=== PATIENT | female | born 1955 | race Caucasian/White ===

== ENCOUNTER → 2017-07-29 | Outpatient (CLI) | payer OTHER | END | disposition home or self-care (01) | LOC: C.PAPS 11:28 | PROVIDERS: ATTEND Obstetrics & Gynecology | DX: Z12.4 Encounter for screening for malignant neoplasm of cervix (principal); Z78.0 Asymptomatic menopausal state ==

== ENCOUNTER → 2017-09-25 | Outpatient (CLI) | payer OTHER ==
--- NOTE | 2017-09-28 08:00 | MAMMOGRAPHY REPORT ---
BILATERAL DIGITAL SCREENING MAMMOGRAM TOMOSYNTHESIS WITH CAD: 09/25/2017 TECHNIQUE: Breast tomosynthesis in addition to standard 2D mammography was performed. Current study was also evaluated with a Computer Aided Detection (CAD) system. COMPARISON: Comparison is made to exams dated: 09/22/2016 mammogram - [facility], 09/21/2015 mammogram, 09/19/2014 mammogram, and 10/15/2013 mammogram - [facility] r. BREAST COMPOSITION: The tissue of both breasts is almost entirely fatty. FINDINGS: No suspicious masses, calcifications, or areas of architectural distortion are noted in ei ther breast. There has been no significant interval change compared to prior exams. The previously s een mass within the right upper outer quadrant is decreased in size compared to the prior exams and i s therefore considered benign. IMPRESSION: ACR BI-RADS CATEGORY 2: BENIGN There is no mammographic evidence of malignancy. A 1 year screening mammogram is recommended. The pa tient will receive written notification of the results. Approximately 10% of breast cancers are not detected with mammography. A negative mammographic report should not delay biopsy if a clinically suggestive mass is present. Claudia Moe M.D. /:09/25/2017 12:48:04 Chip Machine Operator: Anusha HOWELL(R)(M), [facility] letter sent: Normal 1/2 BI-RADS Code: ACR BI-RADS Category 2: Benign
== END | disposition home or self-care (01) ==
LOC: C.MAMM 10:50
PROVIDERS: ATTEND Obstetrics & Gynecology
DX: Z12.31 Encounter for screening mammogram for malignant neoplasm of breast (principal)

== ENCOUNTER 2021-02-08 10:57 | Inpatient (IN) ==
--- NOTE | 2021-02-08 11:59 | Emergency Department Note ---
Impression & Plan Anemia, SOB (shortness of breath), Ovarian cancer, Nausea ED Provider Note INFORMANT: Patient ED PROVIDER(S): Jose Rizzo MD CHIEF COMPLAINT: Weakness PLAN: Disposition: Admitted Condition: Good Outpatient prescription management: none Referral: None MEDICAL DECISION MAKING: Patient presented because of weakness and noting anemia on outpatient labs. Her CBC revealed a hemoglobin of 7.2 as an outpatient. She had her port accessed. Her labs revealed a mild hypokalemia on chemistry panel. Her CBC showed a significant anemia. Her numbers were significantly lower than yesterday and therefore a repeat hemoglobin was performed. I suspect the first 1 had to do with her blood draw from the port. The patient's repeat hemoglobin was still low. She will require transfusion. I did discuss this with her and she was very much in agreement. I gave my usual and customary discussion regarding this issue. Patient was consented and blood transfusion was initiated in the ER. Patient also was given Ativan, saline, and Zofran. She did feel better with this. The patient will require further management in the hospital. Consultation was made with Dr. Saleem. The patient was evaluated in the ER and admitted for further management. Triage Nursing notes reviewed and agree them. Vital Signs: reviewed and remarkable for no significant abnormalities Differential diagnosis: Symptomatic anemia, Infection, dehydration, metabolic abnormality, hypo/hyperglycemia, electrolyte disturbance, anemia, hypoxia, cardiac sources, i ntracerebral event, toxicologic, neurologic, as well as other pathologies. Diagnostics interpreted by me: ECG: Rate:89 Rhythm:Normal sinus [place]:Normal QRS:Low voltage ST segements:No elevation or depression Other:No PACs or PVCs. LAE. Cardiac Monitoring: Cardiac monitoring ordered by me: The patient was placed on continuous cardiac monitoring and observed. It revealed a normal sinus rhythm at 79 beats per minute without ectopy or evidence of dysrhythmia. Imaging studies: Deferred HPI: The patient is a 65 year old female who presents to the Emergency Room with complaints of anemia. This started two months ago and is worsening. The patient also notes the following associated symptoms, fatigue and SOB. Chronic abd pain from ovarian cancer. The patient has found no relieving factors. Current pain is rated as 4/10. She uses ativan to help her relax.Outpatient labs revealed significant anemia. Hgb 7. Pt denies LOC, headache, fevers, chills, diaphoresis, visual changes, neck pain, chest pain, breathing difficulties, nausea, vomiting, back pain, melena, hematochezia, urinary symptoms, numbness, lymphadenopathy, rash, or other complaints. ROS: See above HPI for pertinent positives & negatives. A total of 10 systems reviewed and were otherwise negative. PAST MEDICAL HISTORY:See Below , ovarian cancer PAST SURGICAL HISTORY:See Below, mediport FAMILY HISTORY:See Below SOCIAL HISTORY:See Below, HOME MEDICATIONS:See Below ALLERGIES:See Below VITALS:See Below PHYSICAL EXAMINATION: GENERAL: Awake, alert, weak-appearing, in no distress HENT: Normocephalic, atraumatic. Oropharynx unremarkable. EYES: Pale conjunctiva. Sclera non-icteric. NECK: Inspection normal. Non-tender. Supple. No nuchal rigidity. FROM. No masses. RESPIRATORY: Clear to auscultation. No wheezes. No rales. Normal respiratory effort. CARDIAC: Normal rate. Normal rhythm. No murmurs. No rubs. Extremities warm and well perfused. Pulses equal. No JVD. GI: Soft, non-distended. No tenderness to palpation. No rebound or guarding. No masses. RECTAL: Deferred. MUSCULOSKELETAL: Atraumatic. Chest examination reveals no tenderness. The back is symmetrical on inspection without obvious abnormality. There is no CVA tenderness to palpation. No joint edema. LOWER EXTREMITIES: Calves are equal size bilaterally and non-tender. No edema. No discoloration. NEURO: Normal sensorium. No sensory or motor deficits noted. SKIN: No rash or jaundice noted. CRITICAL CARE: I have personally spent greater than 35 minutes of critical care time in the direct management of this patient. This includes bedside care, interpretation of diagnostic studies, and testing, discussion with consultants, patient, and family members, and other required patient management activities. These minutes are in excess of all separately billable procedures. Jose Rizzo MD Past Med/Surg History Medical History Back pain GERD (gastroesophageal reflux disease) Hypertension Hypothyroidism Ovarian cancer Surgical History H/O oral surgery S/P appendectomy S/P bilateral salpingo-oophorectomy S/P lymph node biopsy S/P tonsillectomy S/P total abdominal hysterectomy Status post surgery OMENTECTOMY Status post surgery PELVIC LYMPHADENECTOMY Family History Father Myocardial infarction Sister Bipolar disorder Grandmother (Maternal) Stroke Grandmother (Paternal) Stroke Social History Smoking Status: Never smoker Hx Alcohol Use: No Hx Substance Use: Yes Preferred Language: Palestinian Communication Ability: Effective Beliefs That Will Affect Care: None marital status: Current Living Situation: Spouse Feels Safe at Home: Yes Assistive Devices: None Allergies Allergies Allergy/AdvReac Type Severity Reaction Status Date / Time Penicillins Allergy Severe hives, Verified 02/08/21 13:31 throat starts closing Sulfa (Sulfonamide Allergy Severe hives, Verified 02/08/21 13:31 Antibiotics) throat starts closing Home Meds Home Medications Medication Instructions Recorded Confirmed albuterol sulfate [Ventolin HFA] 2 puff INHALATION Q4 PRN 06/25/19 02/08/21 atorvastatin [Lipitor] 20 mg PO QAM 06/25/19 02/08/21 levothyroxine 100 mcg PO DAILYBB 06/25/19 02/08/21 amlodipine 5 mg tablet 5 mg PO QAM 09/20/19 02/08/21 dexamethasone 2 mg PO DAILY 02/08/21 02/08/21 doxorubicin 0 mg IV MONTHLY 02/08/21 02/08/21 lorazepam 0.5 mg SUBLINGUAL Q6H PRN 02/08/21 02/08/21 omeprazole 40 mg PO QAM 02/08/21 02/08/21 ondansetron 4 mg PO QDD 02/08/21 02/08/21 oxycodone-acetaminophen [Percocet] 1 tab PO Q4H PRN 02/08/21 02/08/21 Results & Data (ED) Vital Signs Vital Signs - 24 hr 02/08/21 11:15 02/08/21 11:30 02/08/21 11:36 Temperature 36.1 C L Temperature Source Oral Pulse Rate 99 H 88 90 Pulse Rate from SpO2 Sensor 88 89 Pulse Rhythm Regular Pulse Strength Normal Respiratory Rate 18 17 23 Respiratory Effort / Characteristics Non-Labored Respiratory Depth Normal Respiratory Pattern Regular Blood Pressure 128/73 130/67 Blood Pressure Mean 91 88 Blood Pressure Position Sitting Pulse Oximetry 98 94 96 Oxygen Delivery Method Room Air Sepsis Recent Fever Within 48 Hours No Sepsis New/Unexplained Change in Mental Status No Sepsis Action Taken by Nursing No Action Required 02/08/21 12:00 02/08/21 12:14 02/08/21 12:30 Temperature Temperature Source Pulse Rate 95 H 86 88 Pulse Rate from SpO2 Sensor 93 H Pulse Rhythm Regular Pulse Strength Respiratory Rate 24 15 25 H Respiratory Effort / Characteristics Respiratory Depth Respiratory Pattern Blood Pressure Blood Pressure Mean Blood Pressure Position Pulse Oximetry 96 95 Oxygen Delivery Method Room Air Room Air Sepsis Recent Fever Within 48 Hours Sepsis New/Unexplained Change in Mental Status Sepsis Action Taken by Nursing 02/08/21 13:00 02/08/21 13:30 02/08/21 13:40 Temperature Temperature Source Pulse Rate 90 93 H Pulse Rate from SpO2 Sensor 89 93 H Pulse Rhythm Pulse Strength Respiratory Rate 23 22 Respiratory Effort / Characteristics Respiratory Depth Respiratory Pattern Blood Pressure 169/84 H Blood Pressure Mean 112 Blood Pressure Position Pulse Oximetry 92 92 Oxygen Delivery Method Sepsis Recent Fever Within 48 Hours Sepsis New/Unexplained Change in Mental Status Sepsis Action Taken by Nursing 02/08/21 14:00 02/08/21 14:26 02/08/21 14:30 Temperature Temperature Source Pulse Rate 93 H 90 87 Pulse Rate from SpO2 Sensor 90 88 Pulse Rhythm Pulse Strength Respiratory Rate 21 25 H 20 Respiratory Effort / Characteristics Respiratory Depth Respiratory Pattern Blood Pressure 142/69 H Blood Pressure Mean 93 Blood Pressure Position Pulse Oximetry 94 93 Oxygen Delivery Method Sepsis Recent Fever Within 48 Hours Sepsis New/Unexplained Change in Mental Status Sepsis Action Taken by Nursing 02/08/21 14:39 02/08/21 14:40 02/08/21 14:57 Temperature 36.6 C 36.8 C Temperature Source Oral Oral Pulse Rate 95 H 92 H Pulse Rate from SpO2 Sensor 93 H Pulse Rhythm Regular Pulse Strength Normal Respiratory Rate 18 18 Respiratory Effort / Characteristics Respiratory Depth Respiratory Pattern Blood Pressure 159/82 H 159/82 H 149/60 H Blood Pressure Mean 107 107 89 Blood Pressure Position Pulse Oximetry 95 93 94 Oxygen Delivery Method Sepsis Recent Fever Within 48 Hours Sepsis New/Unexplained Change in Mental Status Sepsis Action Taken by Nursing 02/08/21 14:58 02/08/21 15:00 02/08/21 15:12 Temperature 36.8 C Temperature Source Oral Pulse Rate 92 H 89 89 Pulse Rate from SpO2 Sensor 91 H 88 Pulse Rhythm Regular Pulse Strength Normal Respiratory Rate 18 Respiratory Effort / Characteristics Respiratory Depth Respiratory Pattern Blood Pressure 149/67 H 149/71 H Blood Pressure Mean 94 97 Blood Pressure Position Pulse Oximetry 93 95 94 Oxygen Delivery Method Sepsis Recent Fever Within 48 Hours Sepsis New/Unexplained Change in Mental Status Sepsis Action Taken by Nursing 02/08/21 15:13 02/08/21 15:42 02/08/21 15:44 Temperature 37.1 C Temperature Source Oral Pulse Rate 88 91 H Pulse Rate from SpO2 Sensor 88 95 H Pulse Rhythm Pulse Strength Respiratory Rate 14 22 Respiratory Effort / Characteristics Respiratory Depth Respiratory Pattern Blood Pressure 149/71 H 149/78 H Blood Pressure Mean 97 101 Blood Pressure Position Pulse Oximetry 95 96 93 Oxygen Delivery Method Sepsis Recent Fever Within 48 Hours Sepsis New/Unexplained Change in Mental Status Sepsis Action Taken by Nursing 02/08/21 15:46 02/08/21 16:00 02/08/21 16:01 Temperature Temperature Source Pulse Rate 90 81 84 Pulse Rate from SpO2 Sensor 90 82 85 Pulse Rhythm Pulse Strength Respiratory Rate 17 17 19 Respiratory Effort / Characteristics Respiratory Depth Respiratory Pattern Blood Pressure 149/78 H 152/74 H Blood Pressure Mean 101 100 Blood Pressure Position Pulse Oximetry 96 94 95 Oxygen Delivery Method Sepsis Recent Fever Within 48 Hours Sepsis New/Unexplained Change in Mental Status Sepsis Action Taken by Nursing 02/08/21 16:32 02/08/21 16:34 02/08/21 16:42 Temperature 36.9 C Temperature Source Oral Pulse Rate 110 H 91 H 95 H Pulse Rate from SpO2 Sensor 91 H Pulse Rhythm Regular Pulse Strength Normal Respiratory Rate 26 H 27 H 18 Respiratory Effort / Characteristics Respiratory Depth Respiratory Pattern Blood Pressure 160/88 H 160/88 H Blood Pressure Mean 112 112 Blood Pressure Position Lying Pulse Oximetry 95 96 Oxygen Delivery Method Sepsis Recent Fever Within 48 Hours Sepsis New/Unexplained Change in Mental Status Sepsis Action Taken by Nursing 02/08/21 17:18 Temperature 36.8 C Temperature Source Oral Pulse Rate 79 Pulse Rate from SpO2 Sensor Pulse Rhythm Regular Pulse Strength Normal Respiratory Rate 14 Respiratory Effort / Characteristics Respiratory Depth Respiratory Pattern Blood Pressure 169/91 H Blood Pressure Mean 117 Blood Pressure Position Lying Pulse Oximetry 97 Oxygen Delivery Method Sepsis Recent Fever Within 48 Hours Sepsis New/Unexplained Change in Mental Status Sepsis Action Taken by Nursing Laboratory Data Result diagrams: 02/08/21 12:25 02/08/21 11:50 Lab Results 02/08/21 02/08/21 02/08/21 Range/Units 11:50 11:50 11:50 WBC (4.8-10.8) K/uL RBC (4.2-5.4) M/uL Hgb (12.0-16.0) g/dL Hct (37-47) % MCV (80-100) fL MCH (25-34) pg MCHC (32-36) g/dL RDW Std Deviation (36.4-46.3) fL RDW Coeff of Eduardo (11.5-14.5) % Plt Count (130-400) K/uL MPV (7.4-10.4) fL Immature Gran % (Auto) % Neut % (Auto) % Lymph % (Auto) % [place] % (Auto) % Eos % (Auto) % Baso % (Auto) % Reticulocyte % (Auto) (0.5-2.0) % Neut # (Auto) (1.4-6.5) K/uL Lymph # (Auto) (1.2-3.4) K/uL [place] # (Auto) (0.11-0.59) K/uL Eos # (Auto) (0-0.5) K/uL Baso # (Auto) (0-0.2) K/uL Reticulocyte # (0.02-0.10) 10^6/uL Immature Gran # (Auto) (0.00-0.02) K/uL Polychromasia Anisocytosis Spherocytes PT 10.4 (9.0-12.0) Seconds INR 1.0 (0.9-1.1) APTT 25.3 (21.0-31.0) Seconds PTT Ratio 1.0 Sodium (136-145) mmol/L Potassium (3.5-5.1) mmol/L Chloride (98-107) mmol/L Carbon Dioxide (21-32) mmol/L Anion Gap (3-11) BUN (7-18) mg/dl Creatinine (0.6-1.2) mg/dl Est Cr Clr Drug Dosing Est GFR ( Amer) Est GFR (Non-Af Amer) BUN/Creatinine Ratio (10-20) Glucose (70-99) mg/dl Calcium (8.5-10.1) mg/dl Iron (35-150) mcg/dl Transferrin (200-360) mg/dl Transferrin % Sat (15-50) % Ferritin (8-388) ng/ml Total Bilirubin (0.2-1) mg/dl AST (15-37) U/L ALT (12-78) U/L Alkaline Phosphatase (45-117) U/L Troponin I (0-0.045) ng/ml Total Protein (6.4-8.2) gm/dl Albumin (3.4-5.0) gm/dl Globulin (2.5-4.0) gm/dl Albumin/Globulin Ratio (0.9-2) Folate (>5.38) ng/ml POC Stool Occult Blood COVID-19 Eval Order SARS-CoV-2 (PCR) (Negative) Influenza Type A (PCR) (Neg) Influenza Type B (PCR) (Neg) RSV (RT-PCR) (Neg) Blood Type Cancelled Blood Type Recheck Antibody Screen Cancelled Crossmatch See Detail 02/08/21 02/08/21 02/08/21 Range/Units 11:50 11:50 12:25 WBC 6.67 (4.8-10.8) K/uL RBC 2.28 L (4.2-5.4) M/uL Hgb 6.6 L* (12.0-16.0) g/dL Hct 19.8 L* (37-47) % MCV 85.9 (80-100) fL MCH 28.5 (25-34) pg MCHC 32.8 (32-36) g/dL RDW Std Deviation 53.9 H (36.4-46.3) fL RDW Coeff of Eduardo 17.4 H (11.5-14.5) % Plt Count 295 (130-400) K/uL MPV 10.2 (7.4-10.4) fL Immature Gran % (Auto) 0.3 % Neut % (Auto) 87.9 % Lymph % (Auto) 8.8 % [place] % (Auto) 3.0 % Eos % (Auto) 0.0 % Baso % (Auto) 0.0 % Reticulocyte % (Auto) 1.6 (0.5-2.0) % Neut # (Auto) 5.86 (1.4-6.5) K/uL Lymph # (Auto) 0.59 L (1.2-3.4) K/uL [place] # (Auto) 0.20 (0.11-0.59) K/uL Eos # (Auto) 0.00 (0-0.5) K/uL Baso # (Auto) 0.00 (0-0.2) K/uL Reticulocyte # 0.04 (0.02-0.10) 10^6/uL Immature Gran # (Auto) 0.02 (0.00-0.02) K/uL Polychromasia Anisocytosis Spherocytes 1+ PT (9.0-12.0) Seconds INR (0.9-1.1) APTT (21.0-31.0) Seconds PTT Ratio Sodium 135 L (136-145) mmol/L Potassium 3.2 L (3.5-5.1) mmol/L Chloride 101 (98-107) mmol/L Carbon Dioxide 27 (21-32) mmol/L Anion Gap 7.0 (3-11) BUN 23 H (7-18) mg/dl Creatinine 0.88 (0.6-1.2) mg/dl Est Cr Clr Drug Dosing Not Reportable Est GFR ( Amer) 79.9 Est GFR (Non-Af Amer) 68.9 BUN/Creatinine Ratio 26.7 H (10-20) Glucose 99 (70-99) mg/dl Calcium 9.5 (8.5-10.1) mg/dl Iron (35-150) mcg/dl Transferrin (200-360) mg/dl Transferrin % Sat (15-50) % Ferritin (8-388) ng/ml Total Bilirubin 0.4 (0.2-1) mg/dl AST 30 (15-37) U/L ALT 17 (12-78) U/L Alkaline Phosphatase 301 H (45-117) U/L Troponin I < 0.015 (0-0.045) ng/ml Total Protein 5.9 L (6.4-8.2) gm/dl Albumin 1.8 L (3.4-5.0) gm/dl Globulin 4.1 H (2.5-4.0) gm/dl Albumin/Globulin Ratio 0.4 L (0.9-2) Folate (>5.38) ng/ml POC Stool Occult Blood COVID-19 Eval Order SARS-CoV-2 (PCR) (Negative) Influenza Type A (PCR) (Neg) Influenza Type B (PCR) (Neg) RSV (RT-PCR) (Neg) Blood Type Blood Type Recheck A Positive Antibody Screen Crossmatch 02/08/21 02/08/21 02/08/21 Range/Units 12:29 14:08 14:08 WBC (4.8-10.8) K/uL RBC (4.2-5.4) M/uL Hgb (12.0-16.0) g/dL Hct (37-47) % MCV (80-100) fL MCH (25-34) pg MCHC (32-36) g/dL RDW Std Deviation (36.4-46.3) fL RDW Coeff of Eduardo (11.5-14.5) % Plt Count (130-400) K/uL MPV (7.4-10.4) fL Immature Gran % (Auto) % Neut % (Auto) % Lymph % (Auto) % [place] % (Auto) % Eos % (Auto) % Baso % (Auto) % Reticulocyte % (Auto) (0.5-2.0) % Neut # (Auto) (1.4-6.5) K/uL Lymph # (Auto) (1.2-3.4) K/uL [place] # (Auto) (0.11-0.59) K/uL Eos # (Auto) (0-0.5) K/uL Baso # (Auto) (0-0.2) K/uL Reticulocyte # (0.02-0.10) 10^6/uL Immature Gran # (Auto) (0.00-0.02) K/uL Polychromasia Anisocytosis Spherocytes PT (9.0-12.0) Seconds INR (0.9-1.1) APTT (21.0-31.0) Seconds PTT Ratio Sodium (136-145) mmol/L Potassium (3.5-5.1) mmol/L Chloride (98-107) mmol/L Carbon Dioxide (21-32) mmol/L Anion Gap (3-11) BUN (7-18) mg/dl Creatinine (0.6-1.2) mg/dl Est Cr Clr Drug Dosing Est GFR ( Amer) Est GFR (Non-Af Amer) BUN/Creatinine Ratio (10-20) Glucose (70-99) mg/dl Calcium (8.5-10.1) mg/dl Iron 19 L (35-150) mcg/dl Transferrin 107 L (200-360) mg/dl Transferrin % Sat 12 L (15-50) % Ferritin 504.1 H (8-388) ng/ml Total Bilirubin (0.2-1) mg/dl AST (15-37) U/L ALT (12-78) U/L Alkaline Phosphatase (45-117) U/L Troponin I (0-0.045) ng/ml Total Protein (6.4-8.2) gm/dl Albumin (3.4-5.0) gm/dl Globulin (2.5-4.0) gm/dl Albumin/Globulin Ratio (0.9-2) Folate 14.70 (>5.38) ng/ml POC Stool Occult Blood COVID-19 Eval Order SARS-CoV-2 (PCR) (Negative) Influenza Type A (PCR) (Neg) Influenza Type B (PCR) (Neg) RSV (RT-PCR) (Neg) Blood Type A Positive Blood Type Recheck Antibody Screen NEGATIVE Crossmatch See Detail 02/08/21 02/08/21 02/08/21 Range/Units 15:16 15:16 Unknown WBC (4.8-10.8) K/uL RBC (4.2-5.4) M/uL Hgb (12.0-16.0) g/dL Hct (37-47) % MCV (80-100) fL MCH (25-34) pg MCHC (32-36) g/dL RDW Std Deviation (36.4-46.3) fL RDW Coeff of Eduardo (11.5-14.5) % Plt Count (130-400) K/uL MPV (7.4-10.4) fL Immature Gran % (Auto) % Neut % (Auto) % Lymph % (Auto) % [place] % (Auto) % Eos % (Auto) % Baso % (Auto) % Reticulocyte % (Auto) (0.5-2.0) % Neut # (Auto) (1.4-6.5) K/uL Lymph # (Auto) (1.2-3.4) K/uL [place] # (Auto) (0.11-0.59) K/uL Eos # (Auto) (0-0.5) K/uL Baso # (Auto) (0-0.2) K/uL Reticulocyte # (0.02-0.10) 10^6/uL Immature Gran # (Auto) (0.00-0.02) K/uL Polychromasia Anisocytosis Spherocytes PT (9.0-12.0) Seconds INR (0.9-1.1) APTT (21.0-31.0) Seconds PTT Ratio Sodium (136-145) mmol/L Potassium (3.5-5.1) mmol/L Chloride (98-107) mmol/L Carbon Dioxide (21-32) mmol/L Anion Gap (3-11) BUN (7-18) mg/dl Creatinine (0.6-1.2) mg/dl Est Cr Clr Drug Dosing Est GFR ( Amer) Est GFR (Non-Af Amer) BUN/Creatinine Ratio (10-20) Glucose (70-99) mg/dl Calcium (8.5-10.1) mg/dl Iron (35-150) mcg/dl Transferrin (200-360) mg/dl Transferrin % Sat (15-50) % Ferritin (8-388) ng/ml Total Bilirubin (0.2-1) mg/dl AST (15-37) U/L ALT (12-78) U/L Alkaline Phosphatase (45-117) U/L Troponin I (0-0.045) ng/ml Total Protein (6.4-8.2) gm/dl Albumin (3.4-5.0) gm/dl Globulin (2.5-4.0) gm/dl Albumin/Globulin Ratio (0.9-2) Folate (>5.38) ng/ml POC Stool Occult Blood Cancelled COVID-19 Eval Order CovFluRsv at [facility] SARS-CoV-2 (PCR) NEGATIVE (Negative) Influenza Type A (PCR) Negative (Neg) Influenza Type B (PCR) Negative (Neg) RSV (RT-PCR) Negative (Neg) Blood Type Blood Type Recheck Antibody Screen Crossmatch Administered Medications Pantoprazole Sodium 40 mg/ (Dextrose) 100 mls @ 20 mls/hr IV Q5H GAETANO Stop: 03/10/21 13:59 Last Infusion: 02/08/21 15:11 Dose: 0 mg/hr, 0 mls/hr Documented by: [id number] Admin: 02/08/21 14:55 Dose: 8 mg/hr, 20 mls/hr Documented by: [id number] Discontinued Medications Lorazepam (Ativan) 0.5 mg in 1 mls @ 1 mls/min IV NOW STA Stop: 02/08/21 12:01 Last Admin: 02/08/21 12:42 Dose: 1 mls/min Documented by: [id number] Sodium Chloride (Nss 1000ml) 1,000 mls @ 125 mls/hr IV .Q8H STA Stop: 02/08/21 19:59 Last Admin: 02/08/21 14:47 Dose: 125 mls/hr Documented by: [id number] Potassium Chloride (K Prieto / Wtr) 10 meq in 100 mls @ 100 mls/hr IV Q1H GAETANO Stop: 02/08/21 15:29 Last Infusion: 02/08/21 17:56 Dose: 0 mls/hr Documented by: [id number] Admin: 02/08/21 16:35 Dose: 100 mls/hr Documented by: [id number] Infusion: 02/08/21 15:47 Dose: 100 mls/hr Documented by: [id number] Admin: 02/08/21 14:47 Dose: 100 mls/hr Documented by: [id number] Pantoprazole Sodium 80 mg/ (Dextrose) 120 mls @ 400 mls/hr IV TODAY@1400 ONE Stop: 02/08/21 14:17 Last Infusion: 02/08/21 15:04 Dose: 0 mls/hr Documented by: [id number] Admin: 02/08/21 14:46 Dose: 400 mls/hr Documented by: [id number] Ioversol (Optiray 300 100ml) 87 ml IV ONCE ONE Stop: 02/08/21 15:39 Last Admin: 02/08/21 15:38 Dose: 87 ml Documented by: [id number] Ondansetron HCl (Ondansetron Inj 2 Mg/Ml 2 Ml Vial) 4 mg IV NOW STA Stop: 02/08/21 12:01 Last Admin: 02/08/21 12:42 Dose: 4 mg Documented by: [id number] Imaging Data Radiologist's Impression: Chest X-Ray 02/08/21 13:29 XR chest 1V portable HISTORY: shortness of breath COMPARISON: Chest 06/25/2019. FINDINGS: No pneumothorax. Small left pleural effusion. Left basilar densities are noted. The right lung is clear. The heart is top normal in size. This remains unchanged. Right Port-A-Cath terminates in the distal SVC. This is also unchanged. IMPRESSION: Interval development of a small left pleural effusion. Left basilar densities are nonspecific but favor compressive atelectasis from the pleural effusion. A pneumonia could also have a similar appearance. ACT 112: Negative or not required by law. Electronically signed by: Zachary Fish M.D. 02/08/2021 3:19 PM Abdomen/Pelvis CT 02/08/21 13:39 CT OF THE ABDOMEN AND PELVIS WITH CONTRAST CLINICAL HISTORY: Generalized abdominal pain, GI bleed. Ovarian cancer. COMPARISON STUDY: CT of the abdomen and pelvis December 02, 2020. TECHNIQUE: Following IV administration of 87 mL of Optiray, axial images of the abdomen and pelvis were obtained from the lung bases to the proximal femurs. Images were reviewed in the axial, sagittal, and coronal planes. IV contrast was administered without complication. Automated exposure control was utilized for the study. A dose lowering technique was utilized adhering to the principles of ALARA. CT DOSE: 398.94 mGycm FINDINGS: Visualized portions of the lower chest partially imaged small to moderate left and small right pleural effusions. There is left lower lobe airspace opacity which is atelectasis. No pneumatosis, free air or portal venous gas is present. Scalloping of the inferior liver surface is due to to tumor. The spleen, adrenal glands, kidneys and pancreas are unremarkable. There is no hydronephrosis. A renal cyst is noted. There is no biliary or pancreatic ductal dilatation. Note is made of moderate loculated peritoneal fluid within the abdomen and pelvis, including extending along the right hepatic lobe and medial segment of the left lobe. Peritoneal thickening is noted. This has significantly increased since prior CT. Peritoneal carcinomatosis with omental taking has also progressed since prior CT. There is no evidence for a bowel obstruction. The caliber and wall thickness of small and large bowel are normal. Major vasculature is patent. No suspicious osseous lesions are present. IMPRESSION: 1. Progression of peritoneal carcinomatosis with omental caking since CT of November 23, 2020. 2. Moderate loculated peritoneal fluid within the abdomen and pelvis. Significant associated peritoneal thickening may be related to tumor. However, sterility cannot be assessed by CT and superimposed infection cannot be excluded. 3. No bowel obstruction. 4. Partially visualized small to moderate left and small right pleural effusi ons. ACT 112: Negative or not required by law. Electronically signed by: Yonis Lainez M.D. 02/08/2021 4:01 PM Discharge Plan Visit Data Chief Complaint: Weakness Stated Complaint: NEEDS BLOOD TRANSFUSION ED Provider: Jose Rizzo Discharge Problem: Anemia, SOB (shortness of breath), Ovarian cancer, Nausea Patient Disposition: Admitted As Inpatient Discharge Instructions Interventions: ED Discharge Assessment Last Done: 02/08/21 18:03 Discharge Problem: Anemia Qualifiers: Anemia type: iron deficiency Iron deficiency anemia type: chronic blood loss Qualified Code(s): D50.0 - Iron deficiency anemia secondary to blood loss (chronic)
[2021-02-08] MEDS ORDERED: SODIUM CHLORIDE 0.9% 1000ML 1,000 ML IV STA (12:00)
[2021-02-08] MEDS ORDERED: LORazepam 0.5 MG/1 ML VIAL IV STA (12:00)
[2021-02-08] MEDS ORDERED: ONDANSETRON INJ 2 MG/ML 2 ML VIAL IV STA (12:00)
[2021-02-08 12:19] LABS: Alanine Aminotransferase 17 U/L (12-78); Albumin Level 1.8 gm/dl (3.4-5.0); Aspartate Aminotransferase 30 U/L (15-37); BUN Creatinine Ratio 26.7 (10-20); Blood Urea Nitrogen 23 mg/dl (7-18); Calcium 9.5 mg/dl (8.5-10.1); Carbon Dioxide 27 mmol/L (21-32); Chloride 101 mmol/L (98-107); Est GFR (African American) 79.9; Est GFR (Non-African American) 68.9; Glucose 99 mg/dl (70-99); Potassium 3.2 mmol/L (3.5-5.1); Sodium 135 mmol/L (136-145)
[2021-02-08 12:21] LABS: Partial Thromboplastin Time 25.3 Seconds (21.0-31.0); Prothrombin Time 10.4 Seconds (9.0-12.0)
[2021-02-08 12:24] LABS: Albumin Globulin Ratio 0.4 (0.9-2); Alkaline Phosphatase 301 U/L (45-117); Bilirubin,Total 0.4 mg/dl (0.2-1); Globulin 4.1 gm/dl (2.5-4.0); Total Protein 5.9 gm/dl (6.4-8.2); Troponin I < 0.015 ng/ml (0-0.045)
[2021-02-08 12:39] LABS: Hemoglobin 6.6 g/dL (12.0-16.0)
[2021-02-08] MEDS ORDERED: SODIUM CHLORIDE 0.9% 250 ML IV PRN (12:41)
[2021-02-08 12:52] LABS: Hematocrit (blood only) 19.8 % (37-47); Mean Corpuscular Hemoglobin 28.5 pg (25-34); Mean Platelet Volume 10.2 fL (7.4-10.4); Platelet Count 295 K/uL (130-400); RDW Coefficient of Variation 17.4 % (11.5-14.5); RDW Standard Deviation 53.9 fL (36.4-46.3); Red Blood Count 2.28 M/uL (4.2-5.4); White Blood Count 6.67 K/uL (4.8-10.8)
[2021-02-08 13:18] LABS: Immature Granulocytes # (auto) 0.02 K/uL (0.00-0.02); Immature Granulocytes % (auto) 0.3 %; Lymphocytes # (auto) 0.59 K/uL (1.2-3.4); Lymphocytes % (auto) 8.8 %; Neutrophils # (auto) 5.86 K/uL (1.4-6.5); Neutrophils % (auto) 87.9 %; Spherocytes 1+
--- NOTE | 2021-02-08 13:22 | History & Physical Report ---
Date of Service February 08, 2021 Assessment & Plan (1) Acute GI bleeding: Pantoprazole IV bolus and drip N.p.o. IV fluids when not having blood transfusion Consult gastroenterology for possible endoscopy tomorrow (2) Anemia: Suspect secondary to GI bleed given no thrombocytopenia or leukopenia to suggest secondary to chemotherapy. 2 units blood transfusion with repeat H&H. Transfuse hemoglobin < 8. (3) GERD (gastroesophageal reflux disease): Pantoprazole IV as above (4) Ovarian cancer: Malignant ovarian cancer with peritoneal carcinomatosis. Currently on monochemotherapy with Doxil (had 2 doses). Last dose 01/28. (5) Malignant ascites: Loculated ascites concerning for bacterial peritonitis. Discussed possibl e repeat paracentesis with the patient and she is not keen to do this at present. No leukocytosis or neutrophilia to suggest SBP. Will discuss with GI regarding IV antibiotics for empiric coverage. (6) Peritoneal carcinomatosis: Discussed progression with the patient. Consider palliative referral this admission. (7) Bilateral pleural effusion: Suspected malignant pleural effusions. No hypoxia present time therefore no treatment needed. (8) Thrush: Reports diagnosis of thrush 2 days ago. No oropharyngeal thrush noticed on exam. We will continue treatment pending results of EGD. (9) Hypothyroidism: TSH 6.90 on labs in September. We will repeat with a.m. labs. Continue levothyroxine after able to eat and drink. (10) Hypertension: Hold all antihypertensives due to current acute GI bleed (11) DVT prophylaxis: Chemical prophylaxis contraindicated [facility] Admission and Anticipated Discharge Date Admission Date: February 08, 2021 History of Present Illness Chief Complaint: Abdominal pain, shortness of breath, generalized fatigue Primary Care Provider: DO Celina Holbrookmente is a 65-year-old female with a progressive stage IIIb ovarian cancer who presents to the ER with anemia, shortness of breath and generalized fatigue. She reports a history of 1 week of rapidly worsening generalized f atigue, shortness of breath and lightheadedness. She denies any presyncope or syncopal events. She denies any chest pain, orthopnea, PND, claudication, palpitations. Associated intermittent diarrhea for the past 3 to 4 days, sometimes black. She does note an awful lot of reflux in the last week. She was diagnosed with oropharyngeal thrush 2 days ago and started on nystatin. She is taking 2 mg dexamethasone daily with her new chemotherapy regimen. The patient has a complex metastatic ovarian history. Initially FIGO stage IIIb with bilateral ovarian masses. She underwent surgery followed by 6 cycles of Taxol/carboplatin chemotherapy completed in November 2018. Subsequently had recurrent disease and treated with gemcitabine and a [place] regimen. Subsequently switched to Taxol/cisplatin/Avastin completed June 2020. Thereafter received niraparib maintenance chemotherapy. Unfortunately Ca [address] abdomen/pelvis showed progression of disease with perit cedeno carcinomatosis. Recently started Doxil chemotherapy in December. She last took this on 01/28. She underwent paracentesis on January 09 and February 01 with 3.5-4 L removed. In the ER she was noticeably anemic with hemoglobin 6.6 from 8.71-month ago. 2 units of blood transfusion ordered by ER. While in the emergency room she try to go to the bathroom herself and had a fall onto her left side causing an abrasion on her left shoulder. She denies any lightheadedness but did feel she lost her balance after having a diarrhea bowel movement. She denies hitting her head. No groin pain on any hip movement. She was able to ambulate back towards her bed. She was referred to medicine for admission. Allergies Allergy/AdvReac Type Severity Reaction Status Date / Time Penicillins Allergy Severe hives, Verified 02/08/21 13:31 throat starts closing Sulfa (Sulfonamide Allergy Severe hives, Verified 02/08/21 13:31 Antibiotics) throat starts closing Home Medications Medication Instructions Recorded Confirmed Type albuterol sulfate [Ventolin HFA] 2 puff INHALATION Q4 PRN 06/25/19 02/08/21 History atorvastatin [Lipitor] 20 mg PO QAM 06/25/19 02/08/21 History levothyroxine 100 mcg PO DAILYBB 06/25/19 02/08/21 History amlodipine 5 mg tablet 5 mg PO QAM 09/20/19 02/08/21 History dexamethasone 2 mg PO DAILY 02/08/21 02/08/21 History doxorubicin 0 mg IV MONTHLY 02/08/21 02/08/21 History lorazepam 0.5 mg SUBLINGUAL Q6H PRN 02/08/21 02/08/21 History omeprazole 40 mg PO QAM 02/08/21 02/08/21 History ondansetron 4 mg PO QDD 02/08/21 02/08/21 History oxycodone-acetaminophen [Percocet] 1 tab PO Q4H PRN 02/08/21 02/08/21 History Past Med/Surg History Medical History Back pain GERD (gastroesophageal reflux disease) Hypertension Hypothyroidism Ovarian cancer Surgical History H/O oral surgery S/P appendectomy S/P bilateral salpingo-oophorectomy S/P lymph node biopsy S/P tonsillectomy S/P total abdominal hysterectomy Status post surgery OMENTECTOMY Status post surgery PELVIC LYMPHADENECTOMY Family History Father Myocardial infarction Sister Bipolar disorder Grandmother (Maternal) Stroke Grandmother (Paternal) Stroke Social History Smoking Status: Former smoker Second Hand Exposure: No; Do You Dip or Chew Tobacco: No; Tobacco Cessation Education Requested by Patient: No Hx Alcohol Use: No Hx Substance Use: Yes Last Used Substance: Hours (ago) Substance Use Type Other:: medicinal RSO Medical Marijuana Preferred Language: Thai Communication Ability: Effective Supervisor [employer] Required: No Beliefs That Will Affect Care: None marital status: Current Living Situation: Spouse and Family Other Information That Helps Us Care for You: No Feels Safe at Home: Yes Safety Concerns: Feels Safe At This Time Assistive Devices: Denture - Upper, Denture - Lower and Glasses Review of Systems Review of Systems: All systems reviewed & are unremarkable except as noted in HPI & below Physical Exam Constitutional: WD/WN, vitals as above Eyes: PERRL, conjunctivae normal, anicteric sclerae ENMT: external ear and nose normal, oropharynx normal Neck: trachea midline, no thyromegaly Respiratory: normal respiratory effort, lungs clear to auscultation Cardiovascular: RRR, no murmur, no edema Gastrointestinal (Abdomen): Inspection/Auscultation: normal bowel sounds; abdomen not distended Percussion/Palpation: + abdomen tender (epigastric), + guarding and abdomen soft; abdomen not rigid Musculoskeletal: no cyanosis or clubbing, extremities motor strength 5/5 Skin: no rashes, warm and dry Trauma: + abrasion (Skin abrasion to left shoulder) Neurologic: moves all extremities and awake; no focal motor deficits and not confused Speech / Cognition: normal speech Psychiatric: A+Ox3, euthymic affect Genitourinary: no CVA tenderness Results & Data Results & Data ([facility]) Vital Signs (Past 12 Hours) Vital Signs Temp Pulse Resp BP Pulse Ox 02/08/21 12:14 86 15 95 02/08/21 12:00 95 02/08/21 11:15 36.1 C L 99 H 18 128/73 98 Diagnostic Findings XR chest 1V portable IMPRESSION: Interval development of a small left pleural effusion. Left basilar densities are nonspecific but favor compressive atelectasis from the pleural effusion. A pneumonia could also have a similar appearance. CT OF THE ABDOMEN AND PELVIS WITH CONTRAST IMPRESSION: 1. Progression of peritoneal carcinomatosis with omental caking since CT of November 23, 2020. 2. Moderate loculated peritoneal fluid within the abdomen and pelvis. Significant associated peritoneal thickening may be related to tumor. However, sterility cannot be assessed by CT and superimposed infection cannot be excluded. 3. No bowel obstruction. 4. Partially visualized small to moderate left and small right pleural effusions. Medications Administered ER medications given: NSS 125 ml/hr Lorazepam 0.5 mg IV Ondansetron 4 mg IV ECG Indication: SOB/dyspnea Rate (beats per minute): 89 Rhythm: normal sinus Findings: no acute ischemic change Comparison ECG Date: from (June 25, 2019) Change: no significant change Code Status & VTE Plan Code Status DNR/DNI VTE Prophylaxis Plan VTE Prophylaxis will be ordered: Yes Reason for no VTE drug order: Contraindicated PG Care Time/CCT Total # of Minutes Spent Total Time Spent with Patient: Total time spent is greater than 50% in coordination of care (as documented) at patient's floor/unit and/or counseling patient: Coding Level of Care Code 92960 Initial Inpt Care Lvl 3 Diagnoses Acute GI bleeding K92.2 Anemia D50.0 Anemia type: iron deficiency Iron deficiency anemia type: chronic blood loss GERD (gastroesophageal reflux disease) K21.00 Esophagitis bleeding: unspecified whether hemorrhage Esophagitis presence: with esophagitis Ovarian cancer C56.1; C56.2 Laterality: bilateral Malignant ascites R18.0 Peritoneal carcinomatosis C78.6 Bilateral pleural effusion J90 Thrush B37.0 Hypothyroidism E03.9 Hypothyroidism type: unspecified Hypertension I10 Hypertension type: essential hypertension DVT prophylaxis Z29.9 (1) Ovarian cancer Laterality: bilateral Qualified Code(s): C56.1 - Malignant neoplasm of right ovary; C56.2 - Malignant neoplasm of left ovary (2) Anemia Anemia type: iron deficiency Iron deficiency anemia type: chronic blood loss Qualified Code(s): D50.0 - Iron deficiency anemia secondary to blood loss (chronic) (3) Hypothyroidism Hypothyroidism type: unspecified Qualified Code(s): E03.9 - Hypothyroidism, unspecified (4) GERD (gastroesophageal reflux disease) Esophagitis bleeding: unspecified whether hemorrhage Esophagitis presence: with esophagitis Qualified Code(s): K21.00 - Gastro-esophageal reflux disease with esophagitis, without bleeding (5) Hypertension Hypertension type: essential hypertension Qualified Code(s): I10 - Essential (primary) hypertension
[2021-02-08] MEDS ORDERED: PANTOPRAZOLE BOLUS/DRIP 1 EA IV STA (13:32)
--- NOTE | 2021-02-08 13:47 | Electrocardiogram Report ---
Test Reason : Blood Pressure : / mmHG Vent. Rate : 089 BPM Atrial Rate : 089 BPM P-R Int : 150 ms QRS Dur : 080 ms QT Int : 384 ms P-R-T Axes : 052 025 043 degrees QTc Int : 467 ms Normal sinus rhythm Possible Left atrial enlargement Low voltage QRS Borderline ECG When compared with ECG of 25-JUN-2019 16:56, No significant change was found Confirmed by Carl Banks ([id number]) on 02/08/2021 1:47:19 PM Referred By: Confirmed By:Carl Banks
[2021-02-08 13:55] LABS: Mean Corpuscular Hgb Conc 32.8 g/dL (32-36); Mean Corpuscular Volume 85.9 fL (80-100)
[2021-02-08 14:00] LABS: Reticulocyte % 1.6 % (0.5-2.0); Reticulocytes # 0.04 10^6/uL (0.02-0.10)
[2021-02-08] MEDS ORDERED: PANTOprazole 80 MG in DEXTROSE 5% 100 ML IV ONE (14:00)
[2021-02-08 14:46] LABS: Ferritin 504.1 ng/ml (8-388)
[2021-02-08] MEDS: POTASSIUM CHLORIDE / WTR 10 MEQ/100 ML PLCT IV SCH ×2 (14:47→16:35)
[2021-02-08] MEDS: PANTOprazole 40 MG in DEXTROSE 5% 100 ML IV SCH ×3 (14:55→23:42)
--- NOTE | 2021-02-08 15:20 | XRay Report ---
XR chest 1V portable HISTORY: shortness of breath COMPARISON: Chest 06/25/2019. FINDINGS: No pneumothorax. Small left pleural effusion. Left basilar densities are noted. The right l bob is clear. The heart is top normal in size. This remains unchanged. Right Port-A-Cath terminates i n the distal SVC. This is also unchanged. IMPRESSION: Interval development of a small left pleural effusion. Left basilar densities are nonspecific but fav or compressive atelectasis from the pleural effusion. A pneumonia could also have a similar appearanc e. ACT 112: Negative or not required by law. Electronically signed by: Zachary Fish M.D. 02/08/2021 3:19 PM
[2021-02-08] MEDS ORDERED: OPTIRAY 300 100mL IV ONE (15:38)
--- NOTE | 2021-02-08 16:02 | CT Scan Report ---
CT OF THE ABDOMEN AND PELVIS WITH CONTRAST CLINICAL HISTORY: Generalized abdominal pain, GI bleed. Ovarian cancer. COMPARISON STUDY: CT of the abdomen and pelvis December 02, 2020. TECHNIQUE: Following IV administration of 87 mL of Optiray, axial images of the abdomen and pelvis we re obtained from the lung bases to the proximal femurs. Images were reviewed in the axial, sagittal, and coronal planes. IV contrast was administered without complication. Automated exposure control wa s utilized for the study. A dose lowering technique was utilized adhering to the principles of ALARA . CT DOSE: 398.94 mGycm FINDINGS: Visualized portions of the lower chest partially imaged small to moderate left and small ri ght pleural effusions. There is left lower lobe airspace opacity which is atelectasis. No pneumatosis , free air or portal venous gas is present. Scalloping of the inferior liver surface is due to to arash or. The spleen, adrenal glands, kidneys and pancreas are unremarkable. There is no hydronephrosis. A renal cyst is noted. There is no biliary or pancreatic ductal dilatation. Note is made of moderate lo culated peritoneal fluid within the abdomen and pelvis, including extending along the right hepatic l obe and medial segment of the left lobe. Peritoneal thickening is noted. This has significantly incre ased since prior CT. Peritoneal carcinomatosis with omental taking has also progressed since prior CT . There is no evidence for a bowel obstruction. The caliber and wall thickness of small and large bow el are normal. Major vasculature is patent. No suspicious osseous lesions are present. IMPRESSION: 1. Progression of peritoneal carcinomatosis with omental caking since CT of November 23, 2020. 2. Moderate loculated peritoneal fluid within the abdomen and pelvis. Significant associated peritone al thickening may be related to tumor. However, sterility cannot be assessed by CT and superimposed i nfection cannot be excluded. 3. No bowel obstruction. 4. Partially visualized small to moderate left and small right pleural effusions. ACT 112: Negative or not required by law. Electronically signed by: Yonis Lainez M.D. 02/08/2021 4:01 PM
[2021-02-08 16:35] LABS: Influenza A virus by PCR Negative (Neg); Influenza B virus by PCR Negative (Neg); RSV by PCR Negative (Neg); SARS CoV2 RNA(COVID-19) InHosp NEGATIVE (Negative)
--- NOTE | 2021-02-08 16:43 | Gastrointestinal Consultation ---
Date of Consultation February 08, 2021 Assessment & Plan (1) Anemia: Pt is a 65 yo female w metastatic ovarian ca s/p hysterectomy and currenty on Daxol chemo who presented with anemia, and report of one episode of "black stool" but no tsering melena. Hx of Jamila Thomson tear 09/2020. No n/v currently. Wonder if anemia is chemo related - Receiving blood transfusion, monitor blood ct closely - Continue PPI IV gtt - Defer endoscopic workup at this time unless she is having tsering s/s of GI bl eeding. - Please call over the weekend if any questions/concerns Supervising Physician Co-Signing Physician Notes I saw and evaluated the patient. She presents with a history of anemia. The patient has a history of advanced ovarian cancer and was found to be severely anemic today. She reports having no hematemesis but does have problems with nausea and vomiting thought to be related to intraluminal metastasis. She notes that she has had dark stool but denies sticky stool or black stool. The patient denies having fevers chills sweats rigors today. She notes that she does feel awful and she is not certain if she would like any endoscopic interventions at the present time. Physical exam Frail appearing female Skin pallor noted No icterus noted Impression: Patient presents with profound anemia without any overt signs of gastrointestinal bleeding at the present time. Given her advanced malignancy and suspected pneumonia I would hold on endoscopic intervention at the present time. Perhaps the patient would be best served with medical management to include Protonix 40 mg twice daily. It is possible that her anemia is related to ongoing chemotherapy or perhaps other occult losses. Should there be any questions or concerns over the weekend please do not hesitate to call our service otherwise coverage to resume with the [facility] physician group on Thursday History of Present Illness Reason for Consultation: GI bleed Requesting Physician: Dr. Norman Saleem Attending Physician: Dr. Alvin Morelos History of Present Illness Pt is a 65 y/o female w medical hx of metastatic ovarian ca, malignant ascites, currently on monthy Doxil chemotherapy who was referred by her oncologist to ED for anemia. She has been progressively weak, and having PUENTE, no CP, SOB, abd pain. + nausea usually after her chemo cycle. She is having loose stools. Today in ED noted stools were "black" though not tarry. She is not on iron supplement. She takes ASA 81mg daily, no anticoagulant. Hx of EGD in 09/2020 - Jamila Thomson tear (done in [facility]) Labs reviewed: H/H 03/30, previous Hgb 8. INR 1, BUN 23. Ct abd/pelvis w contrast: 1. Progression of peritoneal carcinomatosis with omental caking since CT of November 23, 2020. 2. Moderate loculated peritoneal fluid within the abdomen and pelvis. Significant associated peritoneal thickening may be related to tumor. However, sterility cannot be assessed by CT and superimposed infection cannot be excluded. 3. No bowel obstruction. 4. Partially visualized small to moderate left and small right pleural effusions. Allergies Allergy/AdvReac Type Severity Reaction Status Date / Time Penicillins Allergy Severe hives, Verified 02/08/21 13:31 throat starts closing Sulfa (Sulfonamide Allergy Severe hives, Verified 02/08/21 13:31 Antibiotics) throat starts closing Home Medications Medication Instructions Recorded Confirmed Type albuterol sulfate [Ventolin HFA] 2 puff INHALATION Q4 PRN 06/25/19 02/08/21 History atorvastatin [Lipitor] 20 mg PO QAM 06/25/19 02/08/21 History levothyroxine 100 mcg PO DAILYBB 06/25/19 02/08/21 History amlodipine 5 mg tablet 5 mg PO QAM 09/20/19 02/08/21 History dexamethasone 2 mg PO DAILY 02/08/21 02/08/21 History doxorubicin 0 mg IV MONTHLY 02/08/21 02/08/21 History lorazepam 0.5 mg SUBLINGUAL Q6H PRN 02/08/21 02/08/21 History omeprazole 40 mg PO QAM 02/08/21 02/08/21 History ondansetron 4 mg PO QDD 02/08/21 02/08/21 History oxycodone-acetaminophen [Percocet] 1 tab PO Q4H PRN 02/08/21 02/08/21 History Patient History Medical History Back pain GERD (gastroesophageal reflux disease) Hypertension Hypothyroidism Ovarian cancer Surgical History H/O oral surgery S/P appendectomy S/P bilateral salpingo-oophorectomy S/P lymph node biopsy S/P tonsillectomy S/P total abdominal hysterectomy Status post surgery OMENTECTOMY Status post surgery PELVIC LYMPHADENECTOMY Family History Father Myocardial infarction Sister Bipolar disorder Grandmother (Maternal) Stroke Grandmother (Paternal) Stroke Social History Smoking Status: Never smoker Hx Alcohol Use: No Hx Substance Use: Yes Preferred Language: Turkmen Communication Ability: Effective Beliefs That Will Affect Care: None marital status: Current Living Situation: Spouse Feels Safe at Home: Yes Assistive Devices: None Review of Systems Review of Systems: All systems reviewed & are unremarkable except as noted in HPI & below Physical Exam Constitutional: + thin, + frail appearing, well groomed, cooperative and comfortable Eyes: PERRL, conjunctivae normal, anicteric sclerae ENMT: external ear and nose normal, oropharynx normal Respiratory: normal respiratory effort, lungs clear to auscultation Cardiovascular: RRR, no murmur, no edema Gastrointestinal (Abdomen): normal bowel sounds, soft, nontender, no hepa tosplenomegaly Skin: no rashes, warm and dry Psychiatric: A+Ox3, euthymic affect Lymphatic: no lymphedema Results & Data ([facility]) Vital Signs (Past 12 Hours) Vital Signs Temp Pulse Resp BP Pulse Ox 02/08/21 15:42 37.1 C 91 H 14 149/78 H 96 02/08/21 15:12 36.8 C 89 18 149/71 H 94 02/08/21 14:57 36.8 C 92 H 18 149/60 H 94 02/08/21 14:39 36.6 C 95 H 18 159/82 H 95 02/08/21 12:14 86 15 95 02/08/21 12:00 95 02/08/21 11:15 36.1 C L 99 H 18 128/73 98 (1) Anemia Anemia type: iron deficiency Iron deficiency anemia type: chronic blood loss Qualified Code(s): D50.0 - Iron deficiency anemia secondary to blood loss (chronic)
[2021-02-08] MEDS ORDERED: ACETAMINOPHEN 1,000 MG/100 ML VIAL IV PRN (18:25)
[2021-02-08] MEDS ORDERED: ONDANSETRON INJ 2 MG/ML 2 ML VIAL IV PRN (18:25)
[2021-02-08] MEDS ORDERED: PATIENT'S HEIGHT AND/OR WEIGHT NEEDED SCH (18:45)
[2021-02-08 19:05] LABS: Hematocrit (blood only) 24.8 % (37-47); Hemoglobin 8.2 g/dL (12.0-16.0)
[2021-02-08] MEDS: HYDROmorphone INJ 0.5 MG/0.5 ML SYR IV PRN (19:36)
[2021-02-08] MEDS: D5NSS + 20MEQ KCL 20 MEQ/1,000 ML BAG IV SCH (21:43)
[2021-02-09 00:35] LABS: Hematocrit (blood only) 23.4 % (37-47); Hemoglobin 7.8 g/dL (12.0-16.0)
[2021-02-09] MEDS: LORazepam 0.5 MG TAB SL PRN (00:55)
[2021-02-09] MEDS: HYDROmorphone INJ 0.5 MG/0.5 ML SYR IV PRN ×3 (03:27→20:48)
[2021-02-09] MEDS: PANTOprazole 40 MG in DEXTROSE 5% 100 ML IV SCH (04:47)
[2021-02-09 06:00] LABS: Basophils # (auto) 0.02 K/uL (0-0.2); Basophils % (auto) 0.4 %; Eosinophils # (auto) 0.04 K/uL (0-0.5); Eosinophils % (auto) 0.7 %; Hematocrit (blood only) 24.2 % (37-47); Hemoglobin 7.8 g/dL (12.0-16.0); Immature Granulocytes # (auto) 0.01 K/uL (0.00-0.02); Immature Granulocytes % (auto) 0.2 %; Lymphocytes % (auto) 16.8 %; Mean Corpuscular Hemoglobin 27.7 pg (25-34); Mean Corpuscular Hgb Conc 32.2 g/dL (32-36); Mean Corpuscular Volume 85.8 fL (80-100); Mean Platelet Volume 10.1 fL (7.4-10.4); Monocytes # (auto) 0.29 K/uL (0.11-0.59); Monocytes % (auto) 5.4 %; Neutrophils % (auto) 76.5 %; Platelet Count 271 K/uL (130-400); RDW Coefficient of Variation 16.9 % (11.5-14.5); RDW Standard Deviation 53.2 fL (36.4-46.3); Red Blood Count 2.82 M/uL (4.2-5.4); White Blood Count 5.36 K/uL (4.8-10.8)
[2021-02-09] MEDS: D5NSS + 20MEQ KCL 20 MEQ/1,000 ML BAG IV SCH (06:32)
[2021-02-09 06:33] LABS: RBC Morphology Unremarkable
[2021-02-09 06:36] LABS: Albumin Globulin Ratio 0.5 (0.9-2); Albumin Level 1.7 gm/dl (3.4-5.0); BUN Creatinine Ratio 21.2 (10-20); Bilirubin,Total 0.4 mg/dl (0.2-1); Calcium 8.1 mg/dl (8.5-10.1); Creatinine Clr Calc Pharmacy 66.3 ml/min; Est GFR (African American) 100.2; Est GFR (Non-African American) 86.4; Globulin 3.7 gm/dl (2.5-4.0); Potassium 3.3 mmol/L (3.5-5.1); Total Protein 5.4 gm/dl (6.4-8.2)
--- NOTE | 2021-02-09 08:50 | Gastroenterology Progress Note ---
Date of Service February 09, 2021 Assessment & Plan (1) Anemia: Patient admitted with worsening anemia, at the present time there is no obvious evidence of overt gastrointestinal bleeding i.e., the patient has no melena, hematochezia, hematemesis nor coffee-ground emesis. We would recommend continued use of a proton pump inhibitor 1-2 times daily. I suspect that the majority of the patient's symptoms are related to advancement of her underlying ovarian cancer. Recommendations Continue twice daily proton pump inhibitor use Consider oncology evaluation, consider palliative medicine per patient's wishes No plan for endoscopy at the present time Coverage with Dr. Thomas/Dr. Medeiros to resume on Thursday, please call with any additional questions or concerns during the remainder of the weekend Admission and Anticipated Discharge Date Admission Date: February 08, 2021 Subjective The patient notes that she feels much improved after the transfusion yesterday evening. She still denies having any hematemesis coffee-ground emesis or dark sticky stools. The patient notes that she is hungry today and wonders about eating a meal. Review of Systems Constitutional: + malaise; no fever and no sweats Eyes: no diplopia Respiratory: no cough Cardiovascular: no chest pain with activity and no dyspnea at rest Physical Exam Constitutional: + thin; + not well nourished Eyes: PERRL, conjunctivae normal, anicteric sclerae Neck: normal visual inspection Respiratory: no respiratory distress, no labored breathing and does not use accessory muscles Cardiovascular: Rate/Rhythm: regular rate Gastrointestinal (Abdomen): Inspection/Auscultation: normal bowel sounds Percussion/Palpation: abdomen soft Results & Data ([facility]) Vital Signs (Past 12 Hours) Vital Signs Temp Pulse Pulse Resp BP Pulse Ox 02/09/21 07:31 36.5 C 89 18 129/68 94 02/09/21 03:12 36.8 C 99 H 20 127/75 92 02/09/21 02:22 82 02/08/21 23:09 36.5 C 83 18 123/70 95 Laboratory Results Laboratory Results - last 24 hr 02/08/21 02/08/21 02/08/21 11:50 11:50 11:50 WBC RBC Hgb Hct MCV MCH MCHC RDW Std Deviation RDW Coeff of Eduardo Plt Count MPV Immature Gran % (Auto) Neut % (Auto) Lymph % (Auto) Ness % (Auto) Eos % (Auto) Baso % (Auto) Reticulocyte % (Auto) Neut # (Auto) Lymph # (Auto) Ness # (Auto) Eos # (Auto) Baso # (Auto) Reticulocyte # Immature Gran # (Auto) RBC Morphology Polychromasia Anisocytosis Spherocytes PT 10.4 INR 1.0 APTT 25.3 PTT Ratio 1.0 Sodium Potassium Chloride Carbon Dioxide Anion Gap BUN Creatinine Est Cr Clr Drug Dosing Est GFR ( Amer) Est GFR (Non-Af Amer) BUN/Creatinine Ratio Glucose Calcium Iron Transferrin Transferrin % Sat Ferritin Total Bilirubin AST ALT Alkaline Phosphatase Troponin I Total Protein Albumin Globulin Albumin/Globulin Ratio Folate POC Stool Occult Blood COVID-19 Eval Order SARS-CoV-2 (PCR) Influenza Type A (PCR) Influenza Type B (PCR) RSV (RT-PCR) Blood Type Cancelled Blood Type Recheck Antibody Screen Cancelled Crossmatch See Detail 02/08/21 02/08/21 02/08/21 11:50 11:50 12:25 WBC 6.67 RBC 2.28 L Hgb 6.6 L* Hct 19.8 L* MCV 85.9 MCH 28.5 MCHC 32.8 RDW Std Deviation 53.9 H RDW Coeff of Eduardo 17.4 H Plt Count 295 MPV 10.2 Immature Gran % (Auto) 0.3 Neut % (Auto) 87.9 Lymph % (Auto) 8.8 Ness % (Auto) 3.0 Eos % (Auto) 0.0 Baso % (Auto) 0.0 Reticulocyte % (Auto) 1.6 Neut # (Auto) 5.86 Lymph # (Auto) 0.59 L Ness # (Auto) 0.20 Eos # (Auto) 0.00 Baso # (Auto) 0.00 Reticulocyte # 0.04 Immature Gran # (Auto) 0.02 RBC Morphology Polychromasia Anisocytosis Spherocytes 1+ PT INR APTT PTT Ratio Sodium 135 L Potassium 3.2 L Chloride 101 Carbon Dioxide 27 Anion Gap 7.0 BUN 23 H Creatinine 0.88 Est Cr Clr Drug Dosing Not Reportable Est GFR ( Amer) 79.9 Est GFR (Non-Af Amer) 68.9 BUN/Creatinine Ratio 26.7 H Glucose 99 Calcium 9.5 Iron Transferrin Transferrin % Sat Ferritin Total Bilirubin 0.4 AST 30 ALT 17 Alkaline Phosphatase 301 H Troponin I < 0.015 Total Protein 5.9 L Albumin 1.8 L Globulin 4.1 H Albumin/Globulin Ratio 0.4 L Folate POC Stool Occult Blood COVID-19 Eval Order SARS-CoV-2 (PCR) Influenza Type A (PCR) Influenza Type B (PCR) RSV (RT-PCR) Blood Type Blood Type Recheck A Positive Antibody Screen Crossmatch 02/08/21 02/08/21 02/08/21 12:29 14:08 14:08 WBC RBC Hgb Hct MCV MCH MCHC RDW Std Deviation RDW Coeff of Eduardo Plt Count MPV Immature Gran % (Auto) Neut % (Auto) Lymph % (Auto) Ness % (Auto) Eos % (Auto) Baso % (Auto) Reticulocyte % (Auto) Neut # (Auto) Lymph # (Auto) Ness # (Auto) Eos # (Auto) Baso # (Auto) Reticulocyte # Immature Gran # (Auto) RBC Morphology Polychromasia Anisocytosis Spherocytes PT INR APTT PTT Ratio Sodium Potassium Chloride Carbon Dioxide Anion Gap BUN Creatinine Est Cr Clr Drug Dosing Est GFR ( Amer) Est GFR (Non-Af Amer) BUN/Creatinine Ratio Glucose Calcium Iron 19 L Transferrin 107 L Transferrin % Sat 12 L Ferritin 504.1 H Total Bilirubin AST ALT Alkaline Phosphatase Troponin I Total Protein Albumin Globulin Albumin/Globulin Ratio Folate 14.70 POC Stool Occult Blood COVID-19 Eval Order SARS-CoV-2 (PCR) Influenza Type A (PCR) Influenza Type B (PCR) RSV (RT-PCR) Blood Type A Positive Blood Type Recheck Antibody Screen NEGATIVE Crossmatch See Detail 02/08/21 02/08/21 02/08/21 15:16 15:16 18:40 WBC RBC Hgb 8.2 L Hct 24.8 L MCV MCH MCHC RDW Std Deviation RDW Coeff of Eduardo Plt Count MPV Immature Gran % (Auto) Neut % (Auto) Lymph % (Auto) Ness % (Auto) Eos % (Auto) Baso % (Auto) Reticulocyte % (Auto) Neut # (Auto) Lymph # (Auto) Ness # (Auto) Eos # (Auto) Baso # (Auto) Reticulocyte # Immature Gran # (Auto) RBC Morphology Polychromasia Anisocytosis Spherocytes PT INR APTT PTT Ratio Sodium Potassium Chloride Carbon Dioxide Anion Gap BUN Creatinine Est Cr Clr Drug Dosing Est GFR ( Amer) Est GFR (Non-Af Amer) BUN/Creatinine Ratio Glucose Calcium Iron Transferrin Transferrin % Sat Ferritin Total Bilirubin AST ALT Alkaline Phosphatase Troponin I Total Protein Albumin Globulin Albumin/Globulin Ratio Folate POC Stool Occult Blood COVID-19 Eval Order CovFluRsv at [facility] SARS-CoV-2 (PCR) NEGATIVE Influenza Type A (PCR) Negative Influenza Type B (PCR) Negative RSV (RT-PCR) Negative Blood Type Blood Type Recheck Antibody Screen Crossmatch 02/08/21 02/09/21 02/09/21 Unknown 00:19 05:34 WBC 5.36 RBC 2.82 L Hgb 7.8 L 7.8 L Hct 23.4 L 24.2 L MCV 85.8 MCH 27.7 MCHC 32.2 RDW Std Deviation 53.2 H RDW Coeff of Eduardo 16.9 H Plt Count 271 MPV 10.1 Immature Gran % (Auto) 0.2 Neut % (Auto) 76.5 Lymph % (Auto) 16.8 Ness % (Auto) 5.4 Eos % (Auto) 0.7 Baso % (Auto) 0.4 Reticulocyte % (Auto) Neut # (Auto) 4.10 Lymph # (Auto) 0.90 L Ness # (Auto) 0.29 Eos # (Auto) 0.04 Baso # (Auto) 0.02 Reticulocyte # Immature Gran # (Auto) 0.01 RBC Morphology Unremarkable Polychromasia Anisocytosis Spherocytes PT INR APTT PTT Ratio Sodium Potassium Chloride Carbon Dioxide Anion Gap BUN Creatinine Est Cr Clr Drug Dosing Est GFR ( Amer) Est GFR (Non-Af Amer) BUN/Creatinine Ratio Glucose Calcium Iron Transferrin Transferrin % Sat Ferritin Total Bilirubin AST ALT Alkaline Phosphatase Troponin I Total Protein Albumin Globulin Albumin/Globulin Ratio Folate POC Stool Occult Blood Cancelled COVID-19 Eval Order SARS-CoV-2 (PCR) Influenza Type A (PCR) Influenza Type B (PCR) RSV (RT-PCR) Blood Type Blood Type Recheck Antibody Screen Crossmatch 02/09/21 05:34 WBC RBC Hgb Hct MCV MCH MCHC RDW Std Deviation RDW Coeff of Eduardo Plt Count MPV Immature Gran % (Auto) Neut % (Auto) Lymph % (Auto) Ness % (Auto) Eos % (Auto) Baso % (Auto) Reticulocyte % (Auto) Neut # (Auto) Lymph # (Auto) Ness # (Auto) Eos # (Auto) Baso # (Auto) Reticulocyte # Immature Gran # (Auto) RBC Morphology Polychromasia Anisocytosis Spherocytes PT INR APTT PTT Ratio Sodium 139 Potassium 3.3 L Chloride 108 H Carbon Dioxide 24 Anion Gap 7.0 BUN 15 Creatinine 0.73 Est Cr Clr Drug Dosing 66.3 Est GFR ( Amer) 100.2 Est GFR (Non-Af Amer) 86.4 BUN/Creatinine Ratio 21.2 H Glucose 98 Calcium 8.1 L Iron Transferrin Transferrin % Sat Ferritin Total Bilirubin 0.4 AST 23 ALT 12 Alkaline Phosphatase 247 H Troponin I Total Protein 5.4 L Albumin 1.7 L Globulin 3.7 Albumin/Globulin Ratio 0.5 L Folate POC Stool Occult Blood COVID-19 Eval Order SARS-CoV-2 (PCR) Influenza Type A (PCR) Influenza Type B (PCR) RSV (RT-PCR) Blood Type Blood Type Recheck Antibody Screen Crossmatch Diagnostic Findings [facility], [id number] CT Scan Report Patient: KIMO DELATORRE Date: 02[birth year]21MR#: [id number]: [id number] [facility]ct ID:[id number]: Date: [address] [place] [address] Zip: [place] [id number]: [id number]: EDSex: FRoom/Bed:Att Phy:Diagnosis: NEEDS BLOOD TRANSFUSIONPri Phy: Gianna Hunt, DOService Date: 02/08/21Fa Phy:Interpreting Phy: [facility]onis Lainez [facility] Phy: Ordering Phy: Norman Saleem MD cc: ~ CT OF THE ABDOMEN AND PELVIS WITH CONTRAST CLINICAL HISTORY: Generalized abdominal pain, GI bleed. Ovarian cancer. COMPARISON STUDY: CT of the abdomen and pelvis December 02, 2020. TECHNIQUE: Following IV administration of 87 mL of Optiray, axial images of the abdomen and pelvis were obtained from the lung bases to the proximal femurs. Images were reviewed in the axial, sagittal, and coronal planes. IV contrast was administered without complication. Automated exposure control was utilized for the study. A dose lowering technique was utilized adhering to the principles of ALARA. CT DOSE: 398.94 mGycm FINDINGS: Visualized portions of the lower chest partially imaged small to moderate left and small right pleural effusions. There is left lower lobe airspace opacity which is atelectasis. No pneumatosis, free air or portal venous gas is present. Scalloping of the inferior liver surface is due to to tumor. The spleen, adrenal glands, kidneys and pancreas are unremarkable. There is no hydronephrosis. A renal cyst is noted. There is no biliary or pancreatic ductal dilatation. Note is made of moderate loculated peritoneal fluid within the abdomen and pelvis, including extending along the right hepatic lobe and medial segment of the left lobe. Peritoneal thickening is noted. This has significantly increased since prior CT. Peritoneal carcinomatosis with omental taking has also progressed since prior CT. There is no evidence for a bowel obstruction. The caliber and wall thickness of small and large bowel are normal. Major vasculature is patent. No suspicious osseous lesions are present. IMPRESSION: 1. Progression of peritoneal carcinomatosis with omental caking since CT of November 23, 2020. 2. Moderate loculated peritoneal fluid within the abdomen and pelvis. Significant associated peritoneal thickening may be related to tumor. However, sterility cannot be assessed by CT and superimposed infection cannot be excluded. 3. No bowel obstruction. 4. Partially visualized small to moderate left and small right pleural effusions. (1) Anemia Anemia type: iron deficiency Iron deficiency anemia type: chronic blood loss Qualified Code(s): D50.0 - Iron deficiency anemia secondary to blood loss (chronic)
[2021-02-09] MEDS ORDERED: PANTOprazole 40 MG in DEXTROSE 5% 100 ML IV SCH (09:00)
[2021-02-09] MEDS: PANTOprazole 40 MG in SYRINGE 0 ML IV SCH ×2 (10:22→20:49)
[2021-02-09] MEDS: POTASSIUM CHLORIDE / WTR 10 MEQ/100 ML PLCT IV SCH ×2 (10:29→11:44)
[2021-02-09 12:45] LABS: Hematocrit (blood only) 26.6 % (37-47); Hemoglobin 8.8 g/dL (12.0-16.0)
--- NOTE | 2021-02-09 13:00 | Hospitalist Progress Note ---
Date of Service February 09, 2021 Assessment & Plan (1) Acute GI bleedin-year-old female with a progressive stage IIIb ovarian cancer who presents to the ER with anemia, shortness of breath and generalized fatigue. Acute GI bleeding: -currently no obvious evidence of overt gastrointestinal bleeding. No melena, hematochezia, hematemesis or coffee-ground emesis -Pantoprazole IV BID -Advance diet as tolerated, now on full liquids -IVF Stopped -Consult gastroenterology appreciated- no plans for endoscopy at the present time Anemia: -s/p 2 units pRBC's. Hgb 8.8 in afternoon. Cont to trend daily CBC and transfuse as needed -Suspect secondary to GI bleed given no thrombocytopenia or leukopenia to suggest secondary to chemotherapy. -PO Ferrous Sulfate started Ovarian cancer: -Malignant ovarian cancer with peritoneal carcinomatosis. -has a complex metastatic ovarian history. Initially FIGO stage IIIb with bilateral ovarian masses. She underwent surgery followed by 6 cycles of Taxol/carboplatin chemotherapy completed in November 2018. Subsequently had recurrent disease and treated with gemcitabine and a [place] regimen. Subsequently switched to Taxol/cisplatin/Avastin completed June 2020. Thereafter received niraparib maintenance chemotherapy. Unfortunately Ca [address] abdomen/pelvis showed progression of disease with peritoneal carcinomatosis. Recently started Doxil chemotherapy in December. She last took this on 01/28. She underwent paracentesis on January 09 and February 01 with 3.5-4 L removed -pt follows with oncologist in [place] -will hold on palliative consult at present as do not want to keep pt in hospital over weekend needlessly and will defer to pt's PCP who knows pt very well. In discussion with pt, prefers to go home on hospice care Malignant ascites: -Loculated ascites concerning for bacterial peritonitis vs related to tumor. Discussed possible repeat paracentesis with the patient and she is not keen to do this at present. No leukocytosis or neutrophilia to suggest SBP. Holding off on any IV antibiotics for empiric coverage. Bilateral pleural effusion: -Suspected malignant pleural effusions. No hypoxia present time therefore no treatment needed. GERD -Pantoprazole IV as above Thrush: -Reports diagnosis of thrush 2 days ago. No oropharyngeal thrush noticed on exam. Holding tx Hypothyroidism: -TSH 6.90 on labs in September. We will repeat with a.m. labs. -Continue levothyroxine after able to eat and drink. Hypertension: -Hold all antihypertensives due to current acute GI bleed FEN/GI: Full Liquids DVT prophylaxis: Chemical prophylaxis contraindicated, SCDs CODE STATUS: DNR/DNI Dispo: Downgrade to Med surg Admission and Anticipated Discharge Date Admission Date: February 08, 2021 Supervising Physician Co-Signing Physician Notes I personally examined the patient and verified all juarez points of history and exam, discussed case, and agree with decision making with Dr Segal. Feeling a bit better, wants to eat, wants to be L to get up and around. Expresses understanding of the worsening of her cancer, and what that likely means prognostically. Vitals noted, in general she is awake and alert pleasant no distress. HEENT normocephalic atraumatic mucous membranes moist. Breathing unlabored no accessory muscle use good effort. Skin shows no rashes no pallor or icterus. Neuro shows no focal deficits. Anemiasubacute GI bleeding versus chemo relatedeither way no hemorrhage, has improved nicely with transfusion. Continue to follow into tomorrow. Advance diet, continue PPI. Metastatic ovarian cancerhas a good understanding of her very poor prognosis given the situation, is deciding if she wants to talk to oncology more as far as other possible treatment options versus just said going straight to a hospice type of care, favoring the latter. Offered empathy support and guidance to the best that I could, noting to her that of course I am not oncology or as well versed in her situation, but have seen similar presentations unfortunately many times. stable for medical, advance diet, activity - hopefully home tomorrow Subjective Seen at bedside, no acute overnight events. Pt states feels better today. Requesting something to eat. No additional episodes of diarrhea. Denies having any hematemesis coffee-ground emesis or dark sticky stools. Eager to eventually get out of hospital. Discussed with pt the course and hopeful d/c tomorrow. Updated via phone. No other acute concerns or complaints. Review of Systems Review of Systems: All systems reviewed & are unremarkable except as noted in HPI & below Physical Exam Constitutional: + thin Eyes: PERRL, conjunctivae normal, anicteric sclerae ENMT: external ear and nose normal, oropharynx normal Respiratory: normal respiratory effort, lungs clear to auscultation Cardiovascular: RRR, no murmur, no edema Gastrointestinal (Abdomen): Inspection/Auscultation: normal bowel sounds; abdomen not distended Percussion/Palpation: + abdomen tender (epigastric) and abdomen soft; no guarding Skin: no rashes, warm and dry Psychiatric: A+Ox3, euthymic affect Results & Data Results & Data ([facility]) Vital Signs (Past 12 Hours) Vital Signs Temp Pulse Pulse Resp BP Pulse Ox 02/09/21 12:08 36.4 C L 96 H 20 135/72 96 02/09/21 07:31 36.5 C 89 18 129/68 94 02/09/21 03:12 36.8 C 99 H 20 127/75 92 02/09/21 02:22 82 Laboratory Results Laboratory Results - last 24 hr 02/08/21 02/08/21 02/08/21 11:50 11:50 11:50 WBC RBC Hgb Hct MCV MCH MCHC RDW Std Deviation RDW Coeff of Eduardo Plt Count MPV Immature Gran % (Auto) Neut % (Auto) Lymph % (Auto) Swisher % (Auto) Eos % (Auto) Baso % (Auto) Reticulocyte % (Auto) Neut # (Auto) Lymph # (Auto) Swisher # (Auto) Eos # (Auto) Baso # (Auto) Reticulocyte # Immature Gran # (Auto) RBC Morphology Polychromasia Anisocytosis Spherocytes Sodium Potassium Chloride Carbon Dioxide Anion Gap BUN Creatinine Est Cr Clr Drug Dosing Est GFR ( Amer) Est GFR (Non-Af Amer) BUN/Creatinine Ratio Glucose Calcium Iron Transferrin Transferrin % Sat Ferritin Total Bilirubin AST ALT Alkaline Phosphatase Total Protein Albumin Globulin Albumin/Globulin Ratio Folate POC Stool Occult Blood COVID-19 Eval Order SARS-CoV-2 (PCR) Influenza Type A (PCR) Influenza Type B (PCR) RSV (RT-PCR) Blood Type Cancelled Blood Type Recheck A Positive Antibody Screen Cancelled Crossmatch See Detail 02/08/21 02/08/21 02/08/21 12:25 12:29 14:08 WBC 6.67 RBC 2.28 L Hgb 6.6 L* Hct 19.8 L* MCV 85.9 MCH 28.5 MCHC 32.8 RDW Std Deviation 53.9 H RDW Coeff of Eduardo 17.4 H Plt Count 295 MPV 10.2 Immature Gran % (Auto) 0.3 Neut % (Auto) 87.9 Lymph % (Auto) 8.8 Swisher % (Auto) 3.0 Eos % (Auto) 0.0 Baso % (Auto) 0.0 Reticulocyte % (Auto) 1.6 Neut # (Auto) 5.86 Lymph # (Auto) 0.59 L Swisher # (Auto) 0.20 Eos # (Auto) 0.00 Baso # (Auto) 0.00 Reticulocyte # 0.04 Immature Gran # (Auto) 0.02 RBC Morphology Polychromasia Anisocytosis Spherocytes 1+ Sodium Potassium Chloride Carbon Dioxide Anion Gap BUN Creatinine Est Cr Clr Drug Dosing Est GFR ( Amer) Est GFR (Non-Af Amer) BUN/Creatinine Ratio Glucose Calcium Iron Transferrin Transferrin % Sat Ferritin Total Bilirubin AST ALT Alkaline Phosphatase Total Protein Albumin Globulin Albumin/Globulin Ratio Folate 14.70 POC Stool Occult Blood COVID-19 Eval Order SARS-CoV-2 (PCR) Influenza Type A (PCR) Influenza Type B (PCR) RSV (RT-PCR) Blood Type A Positive Blood Type Recheck Antibody Screen NEGATIVE Crossmatch See Detail 02/08/21 02/08/21 02/08/21 14:08 15:16 15:16 WBC RBC Hgb Hct MCV MCH MCHC RDW Std Deviation RDW Coeff of Eduardo Plt Count MPV Immature Gran % (Auto) Neut % (Auto) Lymph % (Auto) Swisher % (Auto) Eos % (Auto) Baso % (Auto) Reticulocyte % (Auto) Neut # (Auto) Lymph # (Auto) Swisher # (Auto) Eos # (Auto) Baso # (Auto) Reticulocyte # Immature Gran # (Auto) RBC Morphology Polychromasia Anisocytosis Spherocytes Sodium Potassium Chloride Carbon Dioxide Anion Gap BUN Creatinine Est Cr Clr Drug Dosing Est GFR ( Amer) Est GFR (Non-Af Amer) BUN/Creatinine Ratio Glucose Calcium Iron 19 L Transferrin 107 L Transferrin % Sat 12 L Ferritin 504.1 H Total Bilirubin AST ALT Alkaline Phosphatase Total Protein Albumin Globulin Albumin/Globulin Ratio Folate POC Stool Occult Blood COVID-19 Eval Order [facility]FluRsv at [facility] SARS-CoV-2 (PCR) NEGATIVE Influenza Type A (PCR) Negative Influenza Type B (PCR) Negative RSV (RT-PCR) Negative Blood Type Blood Type Recheck Antibody Screen Crossmatch 02/08/21 02/08/21 02/09/21 18:40 Unknown 00:19 WBC RBC Hgb 8.2 L 7.8 L Hct 24.8 L 23.4 L MCV MCH MCHC RDW Std Deviation RDW Coeff of Eduardo Plt Count MPV Immature Gran % (Auto) Neut % (Auto) Lymph % (Auto) Swisher % (Auto) Eos % (Auto) Baso % (Auto) Reticulocyte % (Auto) Neut # (Auto) Lymph # (Auto) Swisher # (Auto) Eos # (Auto) Baso # (Auto) Reticulocyte # Immature Gran # (Auto) RBC Morphology Polychromasia Anisocytosis Spherocytes Sodium Potassium Chloride Carbon Dioxide Anion Gap BUN Creatinine Est Cr Clr Drug Dosing Est GFR ( Amer) Est GFR (Non-Af Amer) BUN/Creatinine Ratio Glucose Calcium Iron Transferrin Transferrin % Sat Ferritin Total Bilirubin AST ALT Alkaline Phosphatase Total Protein Albumin Globulin Albumin/Globulin Ratio Folate POC Stool Occult Blood Cancelled COVID-19 Eval Order SARS-CoV-2 (PCR) Influenza Type A (PCR) Influenza Type B (PCR) RSV (RT-PCR) Blood Type Blood Type Recheck Antibody Screen Crossmatch 02/09/21 02/09/21 02/09/21 05:34 05:34 12:22 WBC 5.36 RBC 2.82 L Hgb 7.8 L Pending Hct 24.2 L Pending MCV 85.8 MCH 27.7 MCHC 32.2 RDW Std Deviation 53.2 H RDW Coeff of Eduardo 16.9 H Plt Count 271 MPV 10.1 Immature Gran % (Auto) 0.2 Neut % (Auto) 76.5 Lymph % (Auto) 16.8 Swisher % (Auto) 5.4 Eos % (Auto) 0.7 Baso % (Auto) 0.4 Reticulocyte % (Auto) Neut # (Auto) 4.10 Lymph # (Auto) 0.90 L Swisher # (Auto) 0.29 Eos # (Auto) 0.04 Baso # (Auto) 0.02 Reticulocyte # Immature Gran # (Auto) 0.01 RBC Morphology Unremarkable Polychromasia Anisocytosis Spherocytes Sodium 139 Potassium 3.3 L Chloride 108 H Carbon Dioxide 24 Anion Gap 7.0 BUN 15 Creatinine 0.73 Est Cr Clr Drug Dosing 66.3 Est GFR ( Amer) 100.2 Est GFR (Non-Af Amer) 86.4 BUN/Creatinine Ratio 21.2 H Glucose 98 Calcium 8.1 L Iron Transferrin Transferrin % Sat Ferritin Total Bilirubin 0.4 AST 23 ALT 12 Alkaline Phosphatase 247 H Total Protein 5.4 L Albumin 1.7 L Globulin 3.7 Albumin/Globulin Ratio 0.5 L Folate POC Stool Occult Blood COVID-19 Eval Order SARS-CoV-2 (PCR) Influenza Type A (PCR) Influenza Type B (PCR) RSV (RT-PCR) Blood Type Blood Type Recheck Antibody Screen Crossmatch Medications Administered Current Inpatient Medications Ferrous Sulfate (Ferrous Sulfate 325 Mg Tab) 325 mg PO BIDM GAETANO Stop: 03/11/21 16:59 Heparin Sodium (Porcine) (Heparin 100 Unit/Ml 5ml Flush) 5 ml FLUSH PRN PRN PRN Reason: Flush Stop: 03/11/21 01:08 Hydromorphone HCl (Hydromorphone Inj 0.5 Mg/0.5 Ml Syr) 0.25 - 0.5 mg IV Q4H PRN PRN Reason: Pain Stop: 02/22/21 19:07 Last Admin: 02/09/21 10:20 Dose: 0.5 mg Documented by: Acetaminophen (Ofirmev) 1,000 mg in 100 mls @ 400 mls/hr IV Q8H PRN PRN Reason: Pain or Fever Stop: 02/11/21 18:24 Potassium Chloride/Dextrose/Sod Cl (D5nss + 20meq Kcl) 20 meq in 1,000 mls @ 100 mls/hr IV .Q10H GAETANO Stop: 02/09/21 16:44 Last Admin: 02/09/21 06:32 Dose: 100 mls/hr Documented by: Pantoprazole Sodium 40 mg/ (Syringe) 10 mls @ 5 mls/min IV BID@0900,2100 GAETANO Stop: 03/11/21 08:59 Last Admin: 02/09/21 10:22 Dose: 5 mls/min Documented by: Lorazepam (Lorazepam 0.5 Mg Tab) 0.5 mg SL Q6H PRN PRN Reason: Anxiety Stop: 03/11/21 00:14 Last Admin: 02/09/21 00:55 Dose: 0.5 mg Documented by: Ondansetron HCl (Ondansetron Inj 2 Mg/Ml 2 Ml Vial) 4 mg IV Q4H PRN PRN Reason: Nausea Stop: 03/10/21 18:24 Resident Activity Tracking Resident Involvement: Resident Care Provided Care Provided: Adult Hospital Medicine
[2021-02-09] MEDS: HEPARIN 100 UNIT/ML 5ML FLUSH FLUSH PRN ×3 (13:20→20:49)
--- NOTE | 2021-02-09 14:27 | Billing Data ---
Date of Service February 09, 2021 Coding Level of Care Code 55275 Subseq Hosp Care Lvl 3
[2021-02-09] MEDS: FERROUS SULFATE 325 MG TAB PO SCH (17:40)
[2021-02-10] MEDS: LORazepam 0.5 MG TAB SL PRN (01:57)
[2021-02-10 06:26] LABS: Basophils # (auto) 0.02 K/uL (0-0.2); Basophils % (auto) 0.3 %; Eosinophils # (auto) 0.04 K/uL (0-0.5); Eosinophils % (auto) 0.5 %; Hematocrit (blood only) 27.6 % (37-47); Immature Granulocytes # (auto) 0.03 K/uL (0.00-0.02); Immature Granulocytes % (auto) 0.4 %; Lymphocytes # (auto) 1.19 K/uL (1.2-3.4); Lymphocytes % (auto) 15.6 %; Mean Corpuscular Hemoglobin 27.9 pg (25-34); Mean Corpuscular Hgb Conc 32.6 g/dL (32-36); Mean Corpuscular Volume 85.4 fL (80-100); Mean Platelet Volume 10.7 fL (7.4-10.4); Monocytes # (auto) 0.39 K/uL (0.11-0.59); Monocytes % (auto) 5.1 %; Neutrophils # (auto) 5.95 K/uL (1.4-6.5); Neutrophils % (auto) 78.1 %; Platelet Count 319 K/uL (130-400); RDW Coefficient of Variation 17.2 % (11.5-14.5); RDW Standard Deviation 52.8 fL (36.4-46.3); Red Blood Count 3.23 M/uL (4.2-5.4); White Blood Count 7.62 K/uL (4.8-10.8)
[2021-02-10 06:42] LABS: BUN Creatinine Ratio 14.3 (10-20); Calcium 8.5 mg/dl (8.5-10.1); Creatinine Clr Calc Pharmacy 66.3 ml/min; Est GFR (African American) 100.2; Est GFR (Non-African American) 86.4; Potassium 3.5 mmol/L (3.5-5.1)
[2021-02-10] MEDS: FERROUS SULFATE 325 MG TAB PO SCH (08:26)
[2021-02-10] MEDS: PANTOprazole 40 MG in SYRINGE 0 ML IV SCH (08:27)
[2021-02-10] MEDS: HEPARIN 100 UNIT/ML 5ML FLUSH FLUSH PRN ×2 (08:28→11:11)
--- NOTE | 2021-02-10 17:00 | Discharge Summary ---
Date of Service February 10, 2021 Admission HPI Per Admitting Provider Celina Marr is a 65-year-old female with a progressive stage IIIb ovarian cancer who presents to the ER with anemia, shortness of breath and generalized fatigue. She reports a history of 1 week of rapidly worsening generalized fatigue, shortness of breath and lightheadedness. She denies any presyncope or syncopal events. She denies any chest pain, orthopnea, PND, claudication, palpitations. Associated intermittent diarrhea for the past 3 to 4 days, sometimes black. She does note an awful lot of reflux in the last week. She was diagnosed with oropharyngeal thrush 2 days ago and started on nystatin. She is taking 2 mg dexamethasone daily with her new chemotherapy regimen. The patient has a complex metastatic ovarian history. Initially FIGO stage IIIb with bilateral ovarian masses. She underwent surgery followed by 6 cycles of Taxol/carboplatin chemotherapy completed in November 2018. Subsequently had recurrent disease and treated with gemcitabine and a [place] regimen. Subsequently switched to Taxol/cisplatin/Avastin completed June 2020. Thereafter received niraparib maintenance chemotherapy. Unfortunately Ca [address] abdomen/pelvis showed progression of disease with peritoneal carcinomatosis. Recently started Doxil chemotherapy in December. She last took this on 01/28. She underwent paracentesis on January 09 and February 01 with 3.5-4 L removed. In the ER she was noticeably anemic with hemoglobin 6.6 from 8.71-month ago. 2 units of blood transfusion ordered by ER. While in the emergency room she try to go to the bathroom herself and had a fall onto her left side causing an abrasion on her left shoulder. She denies any lightheadedness but did feel she lost her balance after having a diarrhea bowel movement. She denies hitting her head. No groin pain on any hip movement. She was able to ambulate back towards her bed. She was referred to medicine for admission. Principal Diagnosis Anemia: Likely multifactorial Discharge Exam General she is awake and alert pleasant no distress. HEENT normocephalic atraumatic mucous membranes moist. Breathing unlabored no accessory muscle use good effort. Skin shows no rashes no pallor or icterus. Neuro shows no focal deficits. Discharge Data Allergies Allergy/AdvReac Type Severity Reaction Status Date / Time Penicillins Allergy Severe hives, Verified 02/08/21 13:31 throat starts closing Sulfa (Sulfonamide Allergy Severe hives, Verified 02/08/21 13:31 Antibiotics) throat starts closing Consultations 02/08/21 13:31 ED Decision to Admit Stat 02/08/21 13:34 Consult Gastroenterology Routine Ordered Studies 02/08/21 13:39 CT abd pelvis IV con only Stat Hospital Course (1) Anemia: Anemia: Initial concern was for acute GI bleeding: -currently no obvious evidence of overt gastrointestinal bleeding. No melena, hematochezia, hematemesis or coffee-ground emesis -Pantoprazole IV BIDtransition back to home omeprazole -Advance diettolerating regular well -Consulted gastroenterology appreciated- no plans for endoscopy at the present time Stable for home Anemia: -s/p 2 units pRBC's. Hgb improved nicely with no recurrent drop -Suspect secondary to GI bleed, possibly chemotherapy, possibly overall nutritional status -PO Ferrous Sulfate startedfollow-up as outpatient Ovarian cancer with malignant ascites: -Malignant ovarian cancer with peritoneal carcinomatosis. -Metastatic ovarian cancerhas a good understanding of her very poor prognosis given the situation, is deciding if she wants to talk to oncology more as far as other possible treatment options versus just said going straight to a hospice type of care, favoring the latter. Offered empathy support and guidance to the best that I could, noting to her that of course I am not oncology or as well versed in her situation, but have seen similar presentations unfortunately many times. Malignant ascites: -Loculated ascites concerning for bacterial peritonitis vs related to tumor. 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 No hypoxia present time therefore no treatment needed. GERD -Omeprazole Hypothyroidism: -TSH elevatedshe notes she is not always able to keep her Synthroid down. We discussed starting to scale back on some of her medications, but discussed that missing her Synthroid too often might start to lead to unpleasant symptoms of fatigue and malaise. Hypertension: -For now continue amlodipine given her blood pressure deniz quite a bit, but low threshold to discontinue. Stable for homeshe is moving heavily in the direction of hospice/palliative care. She seemed to want to discuss her situation with her oncologist once more, but largely will be wanting to follow-up with her primary care physician, hospice was not formally consulted yet, but I anticipate this will happen in the very near future as an outpatient. Total Time Total Time Spent Total Time Spent (In Minutes): >30 Discharge Plan Discharge Items Patient Disposition: Home - Home Health Services Reason For Visit: ACUTE GI BLEED Discharge Diagnosis: anemia Activity: Resume your previous activity Non-emergency contact: Primary Care Provider and Oncologist Call non-emergency contact if: you have any medication questions and your symptoms worsen Follow-up/Referrals: Gianna Nagy, [Primary Care Provider] - Diet: Regular Addtl Attending Provider Instructions: a) anemia - your blood counts were fairly low on admission -- this has improved nicely with transfusion. since the anemia was probably a combination of a bit of gastrointestinal blood loss, as well as just low red cell production, it's something that could happen again, although i would anticipate it would come about slowly if it did. -we'd ask dr nagy to keep an eye on your blood counts, with the idea that as long as you're doing well enough otherwise, a periodic transfusion could help you feel as good as you can -we'll supplement with iron - as we discussed, there's more and more evidence to suggest that using iron every other day is probably better than more frequently - both to minimize constipation and to maximize absorption (taking it more might actually overwhelm your ability to absorb it - creating a bottleneck that actually blocks absorbing it better!) b) weakness/malnutrition/ovarian cancer -unfortunately as we were discussing, things appear to have reached a point that hospice type care is perfectly appropriate. it would be OK to discuss things with your oncologist again to see if there are any other options, but we'd definitely want you also to talk about those options with Dr Nagy before pursuing anything - because like we talked, even the best of our oncologists will frequently look more to what can be done next, and have a hard time backing off when what should be done is shifting to a hospice type of treatment -to keep yourself going longer, trying to get in 1500 calories a day will help blunt the decline from malnutrition. obviously this also can come with a cost as far as nausea --> that's where things like boost plus can be helpful (it has 350 calories in 8oz) or as we discusssed, the boost extra high calorie actually has 500 calories in 8oz. what i've learned to make them more palatable is to cut them with some half-n-half (which itself has about 30 calories per serving) and/or throw in some nathan's syrup. doing that helps make it easier to tolerate, but also adds calories to the mix. that said, if it's a day you just can't tolerate anything from nausea, it's also OK to say "thanks but no thanks" c) nausea -it's totally OK to take the zofran before each meal - we'll send in an Rx for that -i would have you resume your medical marijuana as you were doing before admission ---> in about a week, if that's not helping enough, i would consider adding marinol to the mix. admittedly i've not had experience with people being on both marijuana and marinol, but since marinol usually doesn't cause much spaciness, as long as dr nagy was guiding it/supervising it, it would be reasonable to try (alternatively, remeron is an anti-depressant medication that has also been shown to help with nausea a good deal) d) ascites (belly fluid) -you can have a paracentesis (drainage) arranged on fairly short notice most of the time. the balance of risk/benefit would mostly hinge on having a drainage (paracentesis) done when you're getting really uncomfortable from the fluid. if you're scheduled for a paracentesis but not feeling full and uncomfortable, it's totally OK to cancel and reschedule e) hypothyroid -- your TSH was about 38, suggesting that you are probably feeling more fatigued from your hypothyroid than you need to be. while a lot of your other medications start to become questionable (for now we'll stop the lipitor, it's likely soon we can stop the amlodipine) it's highly likely to help you to keep taking the synthroid as best as possible f) anxiety - i'll send an Rx for a refill of lorazepam before the end of the day. it requires a special number off a juarez-fob that i leave in my office, so if it's not sent before you leave the hospital, i'll send it once i'm back down there Pending Studies at Discharge: No Stand-Alone Forms: My [facility], Smoking Cessation Medications and DC Order Prescriptions: New ferrous gluconate 324 mg (38 mg iron) tablet 324 mg PO .qod Qty: 30 RF: 0 (DME) Ultra-Light Rollator Misc See Rx Instructions .ROUTE .MEDSUPPLY Qty: 1 RF: 0 Continued amlodipine 5 mg tablet 5 mg PO QAM RF: 0 levothyroxine 100 mcg tablet 100 mcg PO DAILYBB RF: 0 albuterol sulfate [Ventolin HFA] 90 mcg/actuation HFA aerosol inhaler 2 puff inhalation Q4 PRN (Reason: Shortness Of Breath Or Wheezing) RF: 0 doxorubicin 50 mg Recon Soln 0 mg IV MONTHLY RF: 0 omeprazole 40 mg capsule,delayed release(DR/EC) 40 mg PO QAM RF: 0 oxycodone-acetaminophen [Percocet] 5-325 mg tablet 1 tab PO Q4H PRN (Reason: Moderate Pain (Scale Score 5-6)) RF: 0 dexamethasone 2 mg tablet 2 mg PO DAILY RF: 0 lorazepam 0.5 mg tablet 0.5 mg sublingual Q6H PRN (Reason: Anxiety) Qty: 30 RF: 0 Changed ondansetron 4 mg tablet,disintegrating 4 mg PO AC Qty: 90 RF: 0 Discontinued atorvastatin [Lipitor] 20 mg tablet 20 mg PO QAM RF: 0 Discharge Orders: Discharge Order (Routine); Ordered 02/10/21 Ordered By: Tom Segura/Other Patient Handouts: Pleural Effusion, ED Upper GI Bleeding (Stable) Admission Data Admit Date/Time: 02/08/21 16:05 Attending Provider: Tom Villanueva Admit Provider: Norman Saleem Primary Care Provider: Gianna Nagy Other Providers: Norman Saleem ; Omer Thomas Other Interventions: Discharge Summary Assessment (RN) Last Done: 02/10/21 10:58 Supervising Physician Co-Signing Physician Notes I personally examined the patient and verified all juarez points of history and exam, discussed case, and agree with decision making with Dr Segal. Feeling a bit better, wants to eat, wants to be L to get up and around. Expresses understanding of the worsening of her cancer, and what that likely means prognostically. Vitals noted, in general she is awake and alert pleasant no distress. HEENT normocephalic atraumatic mucous membranes moist. Breathing unlabored no accessory muscle use good effort. Skin shows no rashes no pallor or icterus. Neuro shows no focal deficits. Anemiasubacute GI bleeding versus chemo relatedeither way no hemorrhage, has improved nicely with transfusion. Continue to follow into tomorrow. Advance diet, continue PPI. Metastatic ovarian cancerhas a good understanding of her very poor prognosis given the situation, is deciding if she wants to talk to oncology more as far as other possible treatment options versus just said going straight to a hospice type of care, favoring the latter. Offered empathy support and guidance to the best that I could, noting to her that of course I am not oncology or as well versed in her situation, but have seen similar presentations unfortunately many times. stable for medical, advance diet, activity - hopefully home tomorrow Coding Level of Care Code D/C Day Management >30 mins Diagnoses Anemia D50.0 Anemia type: iron deficiency Iron deficiency anemia type: chronic blood loss
== END 2021-02-10 11:58 | disposition home or self-care (01) | DRG 812 ==
LOC: ED 10:57 → SUATTDRO 16:05 → 2S 16:05 → 3W 02-09 14:56

== ENCOUNTER 2021-02-18 10:19 | Inpatient (IN) ==
[2021-02-18] MEDS ORDERED: HYDROmorphone INJ 1 MG/ML SYRINGE IV PRN (11:53)
[2021-02-18] MEDS ORDERED: ONDANSETRON INJ 2 MG/ML 2 ML VIAL IV STA (11:53)
[2021-02-18] MEDS ORDERED: SODIUM CHLORIDE 0.9% 1000ML 1,000 ML IV ONE (11:54)
[2021-02-18 12:55] LABS: Basophils # (auto) 0.01 K/uL (0-0.2); Basophils % (auto) 0.2 %; Hemoglobin 10.5 g/dL (12.0-16.0); Immature Granulocytes # (auto) 0.06 K/uL (0.00-0.02); Immature Granulocytes % (auto) 1.1 %; Lymphocytes # (auto) 0.95 K/uL (1.2-3.4); Mean Corpuscular Hemoglobin 27.6 pg (25-34); Mean Corpuscular Hgb Conc 32.8 g/dL (32-36); Monocytes # (auto) 0.64 K/uL (0.11-0.59); Monocytes % (auto) 11.4 %; Neutrophils # (auto) 3.94 K/uL (1.4-6.5); Neutrophils % (auto) 70.3 %; Platelet Count 398 K/uL (130-400); RDW Coefficient of Variation 17.9 % (11.5-14.5); RDW Standard Deviation 54.5 fL (36.4-46.3); Red Blood Count 3.81 M/uL (4.2-5.4)
[2021-02-18 13:12] LABS: Albumin Level 1.9 gm/dl (3.4-5.0); BUN Creatinine Ratio 31.2 (10-20); Calcium 9.1 mg/dl (8.5-10.1); Creatinine Clr Calc Pharmacy 67.7 ml/min; Est GFR (African American) 105.4; Est GFR (Non-African American) 90.9; Potassium 2.9 mmol/L (3.5-5.1)
[2021-02-18 13:15] LABS: Albumin Globulin Ratio 0.5 (0.9-2); Bilirubin,Total 0.5 mg/dl (0.2-1); Globulin 4.1 gm/dl (2.5-4.0)
[2021-02-18] MEDS ORDERED: POTASSIUM CHLORIDE 20 MEQ/15 ML UDC PO STA (13:44)
[2021-02-18] MEDS: POTASSIUM CHLORIDE / WTR 10 MEQ/100 ML PLCT IV SCH ×2 (14:11→15:55)
[2021-02-18] MEDS ORDERED: OPTIRAY 300 100mL IV ONE (14:38)
--- NOTE | 2021-02-18 15:14 | CT Scan Report ---
CT OF THE ABDOMEN AND PELVIS WITH CONTRAST CLINICAL HISTORY: Diffuse abdominal pain. Ovarian cancer. COMPARISON STUDY: CT of the abdomen and pelvis February 08, 2021. TECHNIQUE: Following IV administration of 88 mL of Optiray, axial images of the abdomen and pelvis we re obtained from the lung bases to the proximal femurs. Images were reviewed in the axial, sagittal, and coronal planes. IV contrast was administered without complication. Automated exposure control wa s utilized for the study. A dose lowering technique was utilized adhering to the principles of ALARA . CT DOSE: 262.38 mGy.cm FINDINGS: Moderate left and small right pleural effusions have slightly increased in size since CT of February 08, 2021. Extensive left lower lobe airspace opacity with volume loss favors atelectasis. Ther e has been interval development of several prominent para-aortic lymph nodes adjacent to the descendi ng thoracic aorta, that measure up to 9 mm. No pneumatosis, free air or portal venous gas is present. There is hepatic steatosis. No biliary or p ancreatic ductal dilatation is present. The spleen, adrenal glands and pancreas are unremarkable. The re is been interval development of mild bilateral collecting system dilatation. A few suspected left renal cysts are noted. Major vasculature is patent. Note is made of peritoneal carcinomatosis with om ental taking. This appears similar to prior examination. Moderate loculated peritoneal fluid with sig nificant peritoneal thickening is noted. The amount of fluid has mildly increased since CT of January 122020. This includes perihepatic fluid with scalloping of the liver. A few prominent retroperitonea l lymph nodes are noted, including a left para-aortic lymph node that measures 9 mm. There is no evid ence for a bowel obstruction. No suspicious osseous lesions are present. IMPRESSION: 1. Moderate loculated peritoneal fluid, mildly increased since CT of February 08, 2021. Significant asso ciated peritoneal thickening may be related to tumor. However, sterility cannot be assessed by CT and superimposed infection cannot be excluded. 2. No significant change in peritoneal carcinomatosis with omental caking. 3. No bowel obstruction. 4. Slight increase in moderate left and small right pleural effusions with segmental left lower lobe atelectasis. 5. Mild lower thoracic and abdominal lymphadenopathy. ACT 112: Negative or not required by law. Electronically signed by: Yonis Lainez M.D. 02/18/2021 3:12 PM
--- NOTE | 2021-02-18 15:31 | Emergency Department Note ---
Impression & Plan Abdominal pain, Ovarian cancer, Acute hypokalemia ED Provider Note NAME: KIMO DELATORRE AGE: 65 SEX: F : 1955 ARRIVES VIA: Walk-In INFORMANT: Patient, ED PROVIDER(S): Paul Barron MD CHIEF COMPLAINT: vomiting HPI: This is a 65-year-old female who presents emergency department complaining of abdominal pain as well as nausea vomiting. The patient has a history of ovarian cancer which has metastasized. She reports she recently stopped chemotherapy and does not wish to continue it. The patient was to have a paracentesis performed as an outpatient today however upon arrival to the surgery center the surgery center sent her here to the emergency department. She describes nausea and vomiting. She reports nothing seems to make the pain any better. She reports that the pain radiates into her back. She has contacted [facility] palliative care however has not been placed on hospice yet. She reports nothing seems to make the pain better or worse. She describes the pain as an ache. ROS: See above HPI for pertinent positives & negatives. A total of 10 systems reviewed and were otherwise negative. PAST MEDICAL HISTORY: See Below PAST SURGICAL HISTORY: See Below FAMILY HISTORY: See Below SOCIAL HISTORY: See Below HOME MEDICATIONS: See Below ALLERGIES: See Below VITALS: See Below PHYSICAL EXAMINATION: VITAL SIGNS - Vital signs and nursing notes were reviewed. GENERAL - 65-year-old female appearing stated age who is in no acute distress. Communicates well with provider and answers questions appropriately. SKIN - Without rashes. HEAD - NC/AT. EYES - PERRL with EOMI bilaterally. Sclera anicteric. Palpebral conjunctiva pink and moist with no injection noted. EARS - No deformities of external structures noted on gross examination bilaterally. NOSE - Midline and without cyanosis. No epistaxis or purulent drainage noted. Septum midline without deviation or septal hematoma noted. MOUTH/OROPHARYNX - Without perioral cyanosis. Buccal mucosa pink and moist and without leukoplakia. Tongue midline with equal elevation of palate bilaterally. No tonsillar hypertrophy, erythema, or exudates noted. NECK - Neck with FROM. Supple to palpation. No nuchal rigidity. LUNGS - Chest wall symmetric without accessory muscle use, intercostals retractions, or central cyanosis. Normal vesicular breath sounds CTA B/L. No wheezes, rales, or rhonchi appreciated. CARDIAC - RRR with S1/S2. No murmur, rubs, or gallops appreciated. CHEST WALL_ Port in place ABDOMEN - Abdominal contour without pulsations or visible masses. BS normoactive all four quadrants. No tenderness, palpable masses, hepatosplenomegaly, or ascites noted. EXTREMITIES - No clubbing or peripheral cyanosis. No pretibial edema present. +3/5 radial, posterior tibial, and dorsalis pedis pulses palpated throughout. +5/5 strength noted in UE/LE bilaterally. NEUROLOGIC - Cranial nerves II through XII grossly intact. Sensory intact to light touch throughout. Patellar reflexes +2/4. PSYCH - A&Ox3 and cooperates fully with examiner. Pt is very pleasant and interacts well with examiner. MEDICAL DECISION MAKING: Patient was seen and evaluated as above in room B9. Review was performed of nursing notes and vital signs. I did review pertinent previous visits and patient history. After obtaining a thorough history and physical examination the above work up was performed. This is a 65-year-old female who presents to the emergency department during a period of high-volume and high acuity over concerns of nausea vomiting. The patient was sent in from her surgery center. She was to have peritoneal fluid drained off her abdomen via paracentesis. They were concerned because the pat ient has a large amount of nausea vomiting and diarrhea. The patient herself is concerned that she needs a blood transfusion. Her potassium was found to be grossly decreased. She was started on IV potassium here in the emergency department given p.o. potassium as well. I did discuss her case with palliative care who was kind enough to come and see the patient at the bedside. Both he and the patient are requesting to have her admitted I feel surgery can also see the patient while she is in the hospital. The case was discussed with the medicine team who did agree to admit the patient. While in the department, I personally reevaluated the patient several times and each time the patient was found to be resting comfortably. The patient was educated upon management, educated upon todays findings/results, educated upon importance of follow up from today's visit, educated upon symptoms in which to return, had questions answered prior to discharge, verbalized understanding, and was discharged home in good condition. An order was placed for continuous cardiac monitoring. The monitor shows a rate of 107 with Normal SInus rhythm. The patient was evaluated during a period of high volume and high acuity during the global COVID-19 pandemic, and that diagnosis was suspected/considered upon their initial presentation. Their evaluation, treatment and testing was consistent with current guidelines for patients who present with complaints or symptoms that may be related to COVID-19. Patient was seen while provider was wearing PPE. Triage Nursing notes reviewed. Prior medical records reviewed Vital Signs: reviewed and remarkable for no significant abnormalities Differential diagnosis: Infection, dehydration, metabolic abnormality, hypo/hyperglycemia, electrolyte disturbance, anemia, hypoxia, cardiac sources, intracerebral event, toxicologic, neurologic, as well as other pathologies. ER treatment provided: See below Laboratory studies: As stated above and show below. Imaging studies: See below Consultation(s): palliative care, medicine Past Med/Surg History Medical History (Updated 02/18/21 @ 17:54 by Paul Barron MD) Back pain GERD (gastroesophageal reflux disease) Hypertension Hypokalemia Hypothyroidism Ovarian cancer Palliative care encounter Surgical History H/O oral surgery S/P appendectomy S/P bilateral salpingo-oophorectomy S/P lymph node biopsy S/P tonsillectomy S/P total abdominal hysterectomy Status post surgery OMENTECTOMY Status post surgery PELVIC LYMPHADENECTOMY Family History Father Myocardial infarction Sister Bipolar disorder Grandmother (Maternal) Stroke Grandmother (Paternal) Stroke Social History Smoking Status: Former smoker Second Hand Exposure: No; Hx Alcohol Use: No Hx Substance Use: Yes Last Used Substance: Hours (ago) Substance Use Type Other:: medicinal RSO Medical Marijuana Preferred Language: Polish Communication Ability: Effective Staffing Mgr Required: No Beliefs That Will Affect Care: None marital status: Current Living Situation: Spouse and Family Feels Safe at Home: Yes Assistive Devices: Walker Allergies Allergies Allergy/AdvReac Type Severity Reaction Status Date / Time Penicillins Allergy Severe hives, Verified 02/18/21 12:57 throat starts closing Sulfa (Sulfonamide Allergy Severe hives, Verified 02/18/21 12:57 Antibiotics) throat starts closing Home Meds Home Medications Medication Instructions Recorded Confirmed albuterol sulfate [Ventolin HFA] 2 puff INHALATION Q4 PRN 06/25/19 02/18/21 levothyroxine 100 mcg PO DAILYBB 06/25/19 02/18/21 amlodipine 5 mg tablet 5 mg PO QAM 09/20/19 02/18/21 doxorubicin 0 mg IV MONTHLY 02/08/21 02/18/21 omeprazole 40 mg PO QAM 02/08/21 02/18/21 oxycodone-acetaminophen [Percocet] 1 tab PO Q4H PRN 02/08/21 02/18/21 Lactobacillus acidophilus 500 mmu cells PO DAILY 02/18/21 02/18/21 [Probiotic Acidophilus] diphenoxylate-atropine 1 tab PO QID PRN 02/18/21 02/18/21 ferrous gluconate 324 mg PO Q2D 02/18/21 02/18/21 Previous Rx's Medication Instructions Recorded lorazepam 0.5 mg SUBLINGUAL Q6H PRN #30 tab 02/10/21 ondansetron 4 mg PO AC #90 tab 02/10/21 walker [Ultra-Light Rollator] #1 ea 02/10/21 Results & Data (ED) Vital Signs Vital Signs - 24 hr 02/18/21 10:46 02/18/21 12:17 02/18/21 12:20 Temperature 36.2 C L Temperature Source Temporal Artery Scan Pulse Rate 119 H 106 H 102 H Pulse Rate [Left Apical] Pulse Rate from SpO2 Sensor Pulse Rhythm Regular Pulse Rhythm [Left Apical] Pulse Strength Normal Pulse Strength [Left Apical] Respiratory Rate 20 21 21 Respiratory Effort / Characteristics Non-Labored Spontaneous Respiratory Depth Normal Respiratory Pattern Regular Blood Pressure 101/68 Blood Pressure [Right Arm] Blood Pressure Mean 79 Blood Pressure Mean [Right Arm] Blood Pressure Position Sitting Blood Pressure Position [Right Arm] Pulse Oximetry 95 Oxygen Delivery Method Room Air Sepsis Recent Fever Within 48 Hours No Sepsis New/Unexplained Change in Mental Status No Sepsis Action Taken by Nursing No Action Required 02/18/21 12:30 02/18/21 12:40 02/18/21 12:50 Temperature Temperature Source Pulse Rate 108 H 99 H 96 H Pulse Rate [Left Apical] 104 H Pulse Rate from SpO2 Sensor Pulse Rhythm Pulse Rhythm [Left Apical] Regular Pulse Strength Pulse Strength [Left Apical] Normal Respiratory Rate 13 11 L 19 Respiratory Effort / Characteristics Non-Labored Spontaneous Respiratory Depth Normal Respiratory Pattern Regular Blood Pressure Blood Pressure [Right Arm] Blood Pressure Mean Blood Pressure Mean [Right Arm] Blood Pressure Position Blood Pressure Position [Right Arm] Pulse Oximetry 96 Oxygen Delivery Method Room Air Sepsis Recent Fever Within 48 Hours Sepsis New/Unexplained Change in Mental Status Sepsis Action Taken by Nursing 02/18/21 13:00 02/18/21 13:10 02/18/21 13:20 Temperature Temperature Source Pulse Rate 97 H 93 H 92 H Pulse Rate [Left Apical] Pulse Rate from SpO2 Sensor Pulse Rhythm Pulse Rhythm [Left Apical] Pulse Strength Pulse Strength [Left Apical] Respiratory Rate 18 23 14 Respiratory Effort / Characteristics Respiratory Depth Respiratory Pattern Blood Pressure Blood Pressure [Right Arm] Blood Pressure Mean Blood Pressure Mean [Right Arm] Blood Pressure Position Blood Pressure Position [Right Arm] Pulse Oximetry Oxygen Delivery Method Sepsis Recent Fever Within 48 Hours Sepsis New/Unexplained Change in Mental Status Sepsis Action Taken by Nursing 02/18/21 13:30 02/18/21 13:40 02/18/21 13:50 Temperature Temperature Source Pulse Rate 97 H 97 H 92 H Pulse Rate [Left Apical] Pulse Rate from SpO2 Sensor Pulse Rhythm Pulse Rhythm [Left Apical] Pulse Strength Pulse Strength [Left Apical] Respiratory Rate 17 24 18 Respiratory Effort / Characteristics Respiratory Depth Respiratory Pattern Blood Pressure Blood Pressure [Right Arm] Blood Pressure Mean Blood Pressure Mean [Right Arm] Blood Pressure Position Blood Pressure Position [Right Arm] Pulse Oximetry Oxygen Delivery Method Sepsis Recent Fever Within 48 Hours Sepsis New/Unexplained Change in Mental Status Sepsis Action Taken by Nursing 02/18/21 14:00 02/18/21 14:10 02/18/21 14:20 Temperature Temperature Source Pulse Rate 95 H 94 H 104 H Pulse Rate [Left Apical] 97 H Pulse Rate from SpO2 Sensor 94 H 104 H Pulse Rhythm Pulse Rhythm [Left Apical] Regular Pulse Strength Pulse Strength [Left Apical] Normal Respiratory Rate 29 H 17 17 Respiratory Effort / Characteristics Non-Labored Spontaneous Respiratory Depth Normal Respiratory Pattern Regular Blood Pressure 141/85 H Blood Pressure [Right Arm] 141/85 H Blood Pressure Mean 103 Blood Pressure Mean [Right Arm] 103 Blood Pressure Position Blood Pressure Position [Right Arm] Lying Pulse Oximetry 93 93 94 Oxygen Delivery Method Room Air Sepsis Recent Fever Within 48 Hours Sepsis New/Unexplained Change in Mental Status Sepsis Action Taken by Nursing 02/18/21 14:51 02/18/21 15:00 02/18/21 15:10 Temperature Temperature Source Pulse Rate 105 H 107 H 102 H Pulse Rate [Left Apical] Pulse Rate from SpO2 Sensor 106 H 107 H 102 H Pulse Rhythm Pulse Rhythm [Left Apical] Pulse Strength Pulse Strength [Left Apical] Respiratory Rate 15 14 24 Respiratory Effort / Characteristics Respiratory Depth Respiratory Pattern Blood Pressure Blood Pressure [Right Arm] Blood Pressure Mean Blood Pressure Mean [Right Arm] Blood Pressure Position Blood Pressure Position [Right Arm] Pulse Oximetry 96 96 94 Oxygen Delivery Method Sepsis Recent Fever Within 48 Hours Sepsis New/Unexplained Change in Mental Status Sepsis Action Taken by Nursing 02/18/21 15:20 02/18/21 15:21 02/18/21 15:30 Temperature Temperature Source Pulse Rate 111 H 109 H Pulse Rate [Left Apical] Pulse Rate from SpO2 Sensor 113 H 111 H 107 H Pulse Rhythm Pulse Rhythm [Left Apical] Pulse Strength Pulse Strength [Left Apical] Respiratory Rate 17 16 25 H Respiratory Effort / Characteristics Respiratory Depth Respiratory Pattern Blood Pressure 189/98 H Blood Pressure [Right Arm] Blood Pressure Mean 128 Blood Pressure Mean [Right Arm] Blood Pressure Position Blood Pressure Position [Right Arm] Pulse Oximetry 94 94 94 Oxygen Delivery Method Sepsis Recent Fever Within 48 Hours Sepsis New/Unexplained Change in Mental Status Sepsis Action Taken by Nursing 02/18/21 15:40 02/18/21 15:50 02/18/21 15:56 Temperature Temperature Source Pulse Rate 108 H 99 H 101 H Pulse Rate [Left Apical] Pulse Rate from SpO2 Sensor 109 H 100 H 100 H Pulse Rhythm Pulse Rhythm [Left Apical] Pulse Strength Pulse Strength [Left Apical] Respiratory Rate 20 18 29 H Respiratory Effort / Characteristics Respiratory Depth Respiratory Pattern Blood Pressure 167/93 H Blood Pressure [Right Arm] Blood Pressure Mean 117 Blood Pressure Mean [Right Arm] Blood Pressure Position Blood Pressure Position [Right Arm] Pulse Oximetry 95 94 96 Oxygen Delivery Method Sepsis Recent Fever Within 48 Hours Sepsis New/Unexplained Change in Mental Status Sepsis Action Taken by Nursing 02/18/21 15:57 02/18/21 16:00 02/18/21 16:10 Temperature Temperature Source Pulse Rate 102 H 110 H 101 H Pulse Rate [Left Apical] Pulse Rate from SpO2 Sensor 103 H Pulse Rhythm Pulse Rhythm [Left Apical] Pulse Strength Pulse Strength [Left Apical] Respiratory Rate 22 16 24 Respiratory Effort / Characteristics Respiratory Depth Respiratory Pattern Blood Pressure Blood Pressure [Right Arm] Blood Pressure Mean Blood Pressure Mean [Right Arm] Blood Pressure Position Blood Pressure Position [Right Arm] Pulse Oximetry 94 Oxygen Delivery Method Sepsis Recent Fever Within 48 Hours Sepsis New/Unexplained Change in Mental Status Sepsis Action Taken by Nursing 02/18/21 16:20 02/18/21 16:30 02/18/21 16:47 Temperature Temperature Source Pulse Rate 98 H 100 H 103 H Pulse Rate [Left Apical] Pulse Rate from SpO2 Sensor 103 H Pulse Rhythm Pulse Rhythm [Left Apical] Pulse Strength Pulse Strength [Left Apical] Respiratory Rate 31 H 14 20 Respiratory Effort / Characteristics Respiratory Depth Respiratory Pattern Blood Pressure 161/89 H Blood Pressure [Right Arm] Blood Pressure Mean 113 Blood Pressure Mean [Right Arm] Blood Pressure Position Blood Pressure Position [Right Arm] Pulse Oximetry 95 Oxygen Delivery Method Sepsis Recent Fever Within 48 Hours Sepsis New/Unexplained Change in Mental Status Sepsis Action Taken by Nursing 02/18/21 16:50 Temperature Temperature Source Pulse Rate 107 H Pulse Rate [Left Apical] Pulse Rate from SpO2 Sensor 103 H Pulse Rhythm Pulse Rhythm [Left Apical] Pulse Strength Pulse Strength [Left Apical] Respiratory Rate 27 H Respiratory Effort / Characteristics Respiratory Depth Respiratory Pattern Blood Pressure Blood Pressure [Right Arm] Blood Pressure Mean Blood Pressure Mean [Right Arm] Blood Pressure Position Blood Pressure Position [Right Arm] Pulse Oximetry 94 Oxygen Delivery Method Sepsis Recent Fever Within 48 Hours Sepsis New/Unexplained Change in Mental Status Sepsis Action Taken by Nursing Laboratory Data Result diagrams: 02/18/21 12:34 02/18/21 12:34 Lab Results 02/18/21 02/18/21 02/18/21 Range/Units 12:34 12:34 12:34 WBC 5.60 (4.8-10.8) K/uL RBC 3.81 L (4.2-5.4) M/uL Hgb 10.5 L (12.0-16.0) g/dL Hct 32.0 L (37-47) % MCV 84.0 (80-100) fL MCH 27.6 (25-34) pg MCHC 32.8 (32-36) g/dL RDW Std Deviation 54.5 H (36.4-46.3) fL RDW Coeff of Eduardo 17.9 H (11.5-14.5) % Plt Count 398 (130-400) K/uL MPV 10.0 (7.4-10.4) fL Immature Gran % (Auto) 1.1 % Neut % (Auto) 70.3 % Lymph % (Auto) 17.0 % Irion % (Auto) 11.4 % Eos % (Auto) 0.0 % Baso % (Auto) 0.2 % Neut # (Auto) 3.94 (1.4-6.5) K/uL Lymph # (Auto) 0.95 L (1.2-3.4) K/uL Irion # (Auto) 0.64 H (0.11-0.59) K/uL Eos # (Auto) 0.00 (0-0.5) K/uL Baso # (Auto) 0.01 (0-0.2) K/uL Immature Gran # (Auto) 0.06 H (0.00-0.02) K/uL Sodium 135 L (136-145) mmol/L Potassium 2.9 L (3.5-5.1) mmol/L Chloride 99 (98-107) mmol/L Carbon Dioxide 24 (21-32) mmol/L Anion Gap 12.0 H (3-11) BUN 22 H (7-18) mg/dl Creatinine 0.70 (0.6-1.2) mg/dl Est Cr Clr Drug Dosing 67.7 ml/min Est GFR ( Amer) 105.4 Est GFR (Non-Af Amer) 90.9 BUN/Creatinine Ratio 31.2 H (10-20) Glucose 79 (70-99) mg/dl Calcium 9.1 (8.5-10.1) mg/dl Total Bilirubin 0.5 (0.2-1) mg/dl AST 21 (15-37) U/L ALT 10 L (12-78) U/L Alkaline Phosphatase 312 H (45-117) U/L Total Protein 6.0 L (6.4-8.2) gm/dl Albumin 1.9 L (3.4-5.0) gm/dl Globulin 4.1 H (2.5-4.0) gm/dl Albumin/Globulin Ratio 0.5 L (0.9-2) Lipase 42 L (73-393) U/L COVID-19 Eval Order SARS-CoV-2 (PCR) (Negative) Influenza Type A (PCR) (Neg) Influenza Type B (PCR) (Neg) RSV (RT-PCR) (Neg) Blood Type A Positive Antibody Screen NEGATIVE 02/18/21 02/18/21 Range/Units 15:58 15:58 WBC (4.8-10.8) K/uL RBC (4.2-5.4) M/uL Hgb (12.0-16.0) g/dL Hct (37-47) % MCV (80-100) fL MCH (25-34) pg MCHC (32-36) g/dL RDW Std Deviation (36.4-46.3) fL RDW Coeff of Eduardo (11.5-14.5) % Plt Count (130-400) K/uL MPV (7.4-10.4) fL Immature Gran % (Auto) % Neut % (Auto) % Lymph % (Auto) % Irion % (Auto) % Eos % (Auto) % Baso % (Auto) % Neut # (Auto) (1.4-6.5) K/uL Lymph # (Auto) (1.2-3.4) K/uL Irion # (Auto) (0.11-0.59) K/uL Eos # (Auto) (0-0.5) K/uL Baso # (Auto) (0-0.2) K/uL Immature Gran # (Auto) (0.00-0.02) K/uL Sodium (136-145) mmol/L Potassium (3.5-5.1) mmol/L Chloride (98-107) mmol/L Carbon Dioxide (21-32) mmol/L Anion Gap (3-11) BUN (7-18) mg/dl Creatinine (0.6-1.2) mg/dl Est Cr Clr Drug Dosing ml/min Est GFR ( Amer) Est GFR (Non-Af Amer) BUN/Creatinine Ratio (10-20) Glucose (70-99) mg/dl Calcium (8.5-10.1) mg/dl Total Bilirubin (0.2-1) mg/dl AST (15-37) U/L ALT (12-78) U/L Alkaline Phosphatase (45-117) U/L Total Protein (6.4-8.2) gm/dl Albumin (3.4-5.0) gm/dl Globulin (2.5-4.0) gm/dl Albumin/Globulin Ratio (0.9-2) Lipase (73-393) U/L COVID-19 Eval Order CovFluRsv at [facility] SARS-CoV-2 (PCR) NEGATIVE (Negative) Influenza Type A (PCR) Negative (Neg) Influenza Type B (PCR) Negative (Neg) RSV (RT-PCR) Negative (Neg) Blood Type Antibody Screen Administered Medications Hydromorphone HCl (Hydromorphone Inj 0.5 Mg/0.5 Ml Syr) 0.5 mg IV Q2H PRN PRN Reason: Pain Stop: 03/04/21 11:52 Last Admin: 02/18/21 17:27 Dose: 0.5 mg Documented by: [id number] Discontinued Medications Hydromorphone HCl (Hydromorphone Inj 1 Mg/Ml Syringe) 0.5 mg IV Q15M PRN PRN Reason: Pain Stop: 03/04/21 11:52 Last Admin: 02/18/21 12:31 Dose: 0.5 mg Documented by: [id number] Sodium Chloride (Nss 1000ml) 1,000 mls @ 999 mls/hr IV .Q1H1M ONE Stop: 02/18/21 12:54 Last Infusion: 02/18/21 13:35 Dose: 0 mls/hr Documented by: [id number] Admin: 02/18/21 12:32 Dose: 999 mls/hr Documented by: [id number] Potassium Chloride (K Prieto / Wtr) 10 meq in 100 mls @ 100 mls/hr IV Q1H GAETANO Stop: 02/18/21 15:44 Last Infusion: 02/18/21 17:05 Dose: 100 mls/hr Documented by: [id number] Admin: 02/18/21 15:55 Dose: 100 mls/hr Documented by: [id number] Infusion: 02/18/21 15:14 Dose: 100 mls/hr Documented by: [id number] Admin: 02/18/21 14:11 Dose: 100 mls/hr Documented by: [id number] Ioversol (Optiray 300 100ml) 88 ml IV ONCE ONE Stop: 02/18/21 14:39 Last Admin: 02/18/21 14:39 Dose: 88 ml Documented by: [id number] Ondansetron HCl (Ondansetron Inj 2 Mg/Ml 2 Ml Vial) 4 mg IV NOW STA Stop: 02/18/21 11:54 Last Admin: 02/18/21 12:32 Dose: 4 mg Documented by: [id number] Potassium Chloride (Potassium Chloride 20 Meq/15 Ml Udc) 40 meq PO NOW STA Stop: 02/18/21 13:45 Last Admin: 02/18/21 14:11 Dose: 40 meq Documented by: [id number] Imaging Data Radiologist's Impression: Abdomen/Pelvis CT 02/18/21 11:53 CT OF THE ABDOMEN AND PELVIS WITH CONTRAST CLINICAL HISTORY: Diffuse abdominal pain. Ovarian cancer. COMPARISON STUDY: CT of the abdomen and pelvis February 08, 2021. TECHNIQUE: Following IV administration of 88 mL of Optiray, axial images of the abdomen and pelvis were obtained from the lung bases to the proximal femurs. Images were reviewed in the axial, sagittal, and coronal planes. IV contrast was administered without complication. Automated exposure control was utilized for the study. A dose lowering technique was utilized adhering to the principles of ALARA. CT DOSE: 262.38 mGy.cm FINDINGS: Moderate left and small right pleural effusions have slightly increased in size since CT of February 08, 2021. Extensive left lower lobe airspace opacity with volume loss favors atelectasis. There has been interval development of several prominent para-aortic lymph nodes adjacent to the descending thoracic aorta, that measure up to 9 mm. No pneumatosis, free air or portal venous gas is present. There is hepatic steatosis. No biliary or pancreatic ductal dilatation is present. The spleen, adrenal glands and pancreas are unremarkable. There is been interval development of mild bilateral collecting system dilatation. A few suspected left renal cysts are noted. Major vasculature is patent. Note is made of peritoneal c arcinomatosis with omental taking. This appears similar to prior examination. Moderate loculated peritoneal fluid with significant peritoneal thickening is noted. The amount of fluid has mildly increased since CT of February 08, 2021. This includes perihepatic fluid with scalloping of the liver. A few prominent retroperitoneal lymph nodes are noted, including a left para-aortic lymph node that measures 9 mm. There is no evidence for a bowel obstruction. No suspicious osseous lesions are present. IMPRESSION: 1. Moderate loculated peritoneal fluid, mildly increased since CT of February 08, 2021. Significant associated peritoneal thickening may be related to tumor. However, sterility cannot be assessed by CT and superimposed infection cannot be excluded. 2. No significant change in peritoneal carcinomatosis with omental caking. 3. No bowel obstruction. 4. Slight increase in moderate left and small right pleural effusions with segmental left lower lobe atelectasis. 5. Mild lower thoracic and abdominal lymphadenopathy. ACT 112: Negative or not required by law. Electronically signed by: Yonis Lainez M.D. 02/18/2021 3:12 PM Discharge Plan Visit Data Chief Complaint: Vomiting Stated Complaint: VOMITING ED Provider: Paul Barron Discharge Problem: Abdominal pain, Ovarian cancer, Acute hypokalemia Forms Stand Alone Forms: [facility] Prescriptions Prescriptions: No Action amlodipine 5 mg tablet 5 mg PO QAM RF: 0 levothyroxine 100 mcg tablet 100 mcg PO DAILYBB RF: 0 albuterol sulfate [Ventolin HFA] 90 mcg/actuation HFA aerosol inhaler 2 puff inhalation Q4 PRN (Reason: Shortness Of Breath Or Wheezing) RF: 0 doxorubicin 50 mg Recon Soln 0 mg IV MONTHLY RF: 0 omeprazole 40 mg capsule,delayed release(DR/EC) 40 mg PO QAM RF: 0 oxycodone-acetaminophen [Percocet] 5-325 mg tablet 1 tab PO Q4H PRN (Reason: Moderate Pain (Scale Score 5-6)) RF: 0 ondansetron 4 mg tablet,disintegrating 4 mg PO AC Qty: 90 RF: 0 (DME) Ultra-Light Rollator Misc See Rx Instructions .ROUTE .MEDSUPPLY Qty: 1 RF: 0 lorazepam 0.5 mg tablet 0.5 mg sublingual Q6H PRN (Reason: Anxiety) Qty: 30 RF: 0 ferrous gluconate 324 mg (38 mg iron) tablet 324 mg PO Q2D RF: 0 diphenoxylate-atropine 2.5-0.025 mg tablet 1 tab PO QID PRN (Reason: Diarrhea) RF: 0 Probiotic Acidophilus 1.5 mg (250 million cell) Capsule 500 mmu cells PO DAILY RF: 0 Discharge Problem: Abdominal pain Qualifiers: Abdominal location: unspecified location Qualified Code(s): R10.9 - Unspecified abdominal pain Ovarian cancer Qualifiers: Laterality: unspecified laterality Qualified Code(s): C56.9 - Malignant neoplasm of unspecified ovary
--- NOTE | 2021-02-18 16:19 | Palliative Care Consultation ---
Date of Consultation February 18, 2021 Assessment & Plan (1) Palliative care encounter: This is an unfortunate 65 year old patient who presented to the [facility] with nausea, vomiting, and pain. She has an unfortunate diagnosis of Stage III ovarian cancer and h as just completed her 4th round of chemotherapy 3 weeks ago. She has an additional PMH that includes: hypothyroidism, HTN, anemia, and peritoneal carcinomatosis. Her , Pasquale, is at her bedside and she has stated that she wishes to go home with hospice services. An abdominal CT scan was performed to rule out intestinal obstruction and evaluate how much fluid was in her abdominal cavity. She has received two paracentesis in her recent past. Per the patient, a physician indicated they would be willing to place an abdominal pigtail catheter for palliative draining. She was started on IV Dilaudid and IV Zofran which has provided her with significant relief. Palliative medicine was consulted to discuss goals of care and assist with symptom management. I met with Celina and her Pasquale at the bedside in B10 pod in the ED. Celina had ambulated to the bathroom when I first came in the room with minimal assistance. Upon her return to the bed, she expressed that her nausea and pain were far better controlled than when she first came in. She indicated that she wanted to go home and transition to hospice care. I was able to discuss Hospice at home and what it entails. My fear with her returning home right now with Hospice is that her symptoms are controlled with IV medicine, but I have concerns that she will end up coming right back to the emergency room once the IV management wears off. I discussed GIP admission under hospice for better symptom management for a 24-48 hour period so that we could evaluate the best mediation regimen for her. She and her were willing to do this. See below for symptom management med managemenet. The patient was being followed by [facility] Palliative Care prior to this hospital visit. I called the [facility] Palliative Care liaison to discuss hospice admission under GIP, and after discussion, she will be admitted to [facility] under GIP services for symptom management with a goal to return home with hospice over the next few days. Referral faxed by ED case management. ED physician, admitting hospitalist, director of case preparer and liner, case preparer and liner in ED aware of above. Palliative will follow. (2) Ovarian cancer: (3) Weakness: (4) Nausea: Intractable nausea. Takes Zofran PRN at home. Ordered Zofran 4 mg IV Q 8 and Zofran 4 mg Q4 PRN (5) Malignant ascites: Abdominal CT scan performed. Some ascites noted, but at this time, no paracentesis will be performed due to no large isolated pockets of fluid. (6) Hypokalemia: K+ 2.9. Receiving some K+ riders, [facility] Hospice aware. History of Present Illness Reason for Consultation: Goals of care/Symptom Management Requesting Physician: Dr. Barron Attending Physician: Devin De Jesus PA-C (admitting) History of Present Illness This is an unfortunate 65 year old patient who presented to the [facility] with nausea, vomiting, and pain. She has an unfortunate diagnosis of Stage III ovarian cancer and h as just completed her 4th round of chemotheray 3 weeks ago. She has an additional PMH that includes: hypothyroidism, HTN, anemia, and peritoneal carcinomatosis. Her , Pasquale, is at her bedside and she has stated that she wishes to go home with hospice services. An abdominal CT scan was performed to rule out intestinal obstruction and evaluate how much fluid was in her abdominal cavity. She has received two paracentesis in her recent past. Per the patient, a physician indicated they would be willing to place an abdominal pigtail catheter for palliative draining. She was started on IV Dilaudid and IV Zofran which has provided her with significant relief. Palliative medicine was consulted to discuss goals of care and assist with symptom management. Please see A/P for further details. Thanks for involving palliative medicine with this unfortunate individual. Allergies Allergy/AdvReac Type Severity Reaction Status Date / Time Penicillins Allergy Severe hives, Verified 02/18/21 12:57 throat starts closing Sulfa (Sulfonamide Allergy Severe hives, Verified 02/18/21 12:57 Antibiotics) throat starts closing Home Medications Medication Instructions Recorded Confirmed Type albuterol sulfate [Ventolin HFA] 2 puff INHALATION Q4 PRN 06/25/19 02/18/21 History levothyroxine 100 mcg PO DAILYBB 06/25/19 02/18/21 History amlodipine 5 mg tablet 5 mg PO QAM 09/20/19 02/18/21 History doxorubicin 0 mg IV MONTHLY 02/08/21 02/18/21 History omeprazole 40 mg PO QAM 02/08/21 02/18/21 History oxycodone-acetaminophen [Percocet] 1 tab PO Q4H PRN 02/08/21 02/18/21 History lorazepam 0.5 mg SUBLINGUAL Q6H PRN #30 tab 02/10/21 02/18/21 Rx ondansetron 4 mg PO AC #90 tab 02/10/21 02/18/21 Rx walker [Ultra-Light Rollator] #1 ea 02/10/21 02/18/21 Rx Lactobacillus acidophilus 500 mmu cells PO DAILY 02/18/21 02/18/21 History [Probiotic Acidophilus] diphenoxylate-atropine 1 tab PO QID PRN 02/18/21 02/18/21 History ferrous gluconate 324 mg PO Q2D 02/18/21 02/18/21 History Patient History Medical History (Updated 02/18/21 @ 16:09 by JESSICA Cedeño) Back pain GERD (gastroesophageal reflux disease) Hypertension Hypokalemia Hypothyroidism Ovarian cancer Palliative care encounter Surgical History H/O oral surgery S/P appendectomy S/P bilateral salpingo-oophorectomy S/P lymph node biopsy S/P tonsillectomy S/P total abdominal hysterectomy Status post surgery OMENTECTOMY Status post surgery PELVIC LYMPHADENECTOMY Family History Father Myocardial infarction Sister Bipolar disorder Grandmother (Maternal) Stroke Grandmother (Paternal) Stroke Social History Smoking Status: Former smoker Second Hand Exposure: No; Hx Alcohol Use: No Hx Substance Use: Yes Last Used Substance: Hours (ago) Substance Use Type Other:: medicinal RSO Medical Marijuana Preferred Language: Lithuanian Communication Ability: Effective 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 Beliefs That Will Affect Care: None marital status: Current Living Situation: Spouse and Family Feels Safe at Home: Yes Assistive Devices: Walker Review of Systems Review of Systems: Hollis System Assessment Scale: Pain: 1/3 Nausea: 2/3 Lack of Appetite: 1/3 Shortness of breath: 0/3 Palliative Performance Scale: 40% Physical Exam Constitutional: + acute distress, + thin, + frail appearing and cooperative ENMT: Nose: + dry nasal mucous membranes Respiratory: normal respiratory effort, lungs clear to auscultation Cardiovascular: Rate/Rhythm: regular rhythm and + tachycardic Heart Sounds: normal S1 and normal S2 Extremities: normal capillary refill Gastrointestinal (Abdomen): Percussion/Palpation: + abdomen tender, + guarding and + ascites Skin: normal turgor and + pallor Psychiatric: A+Ox3, euthymic affect Insight: good insight Judgement: good judgement Results & Data ([facility]) Vital Signs (Past 12 Hours) Vital Signs Temp Pulse Pulse Resp BP BP Pulse Ox 02/18/21 15:56 101 H 29 H 167/93 H 96 02/18/21 15:50 99 H 18 94 02/18/21 15:40 108 H 20 95 02/18/21 15:30 109 H 25 H 94 02/18/21 15:21 111 H 16 94 02/18/21 15:20 17 189/98 H 94 02/18/21 15:10 102 H 24 94 02/18/21 15:00 107 H 14 96 02/18/21 14:51 105 H 15 96 02/18/21 14:20 104 H 17 94 02/18/21 14:10 94 H 17 141/85 H 93 02/18/21 14:00 95 H 97 H 29 H 141/85 H 93 02/18/21 13:50 92 H 18 02/18/21 13:40 97 H 24 02/18/21 13:30 97 H 17 02/18/21 13:20 92 H 14 02/18/21 13:10 93 H 23 02/18/21 13:00 97 H 18 02/18/21 12:50 96 H 19 02/18/21 12:40 99 H 11 L 02/18/21 12:30 108 H 104 H 13 96 02/18/21 12:20 102 H 21 02/18/21 12:17 106 H 21 02/18/21 10:46 36.2 C L 119 H 20 101/68 95 PG Care Time/CCT Total # of Minutes Spent Total Time Spent with Patient: Total time spent is greater than 50% in coordination of care (as documented) at patient's floor/unit and/or counseling patient: 100 minutes with > 50% of that time spent assessing the patient, discussing goals of care, providing symptom management and collaborating with IDT Coding Level of Care Code 36154 Inpt Consult Level 4 Diagnoses Palliative care encounter Z51.5 Ovarian cancer C56.9 Weakness R53.1 Nausea R11.0 Malignant ascites R18.0 Hypokalemia E87.6 Time Spent (min) 100
[2021-02-18 16:58] LABS: Influenza A virus by PCR Negative (Neg); Influenza B virus by PCR Negative (Neg); RSV by PCR Negative (Neg); SARS CoV2 RNA(COVID-19) InHosp NEGATIVE (Negative)
[2021-02-18] MEDS: HYDROmorphone INJ 0.5 MG/0.5 ML SYR IV PRN ×2 (17:27→23:19)
--- NOTE | 2021-02-18 18:34 | History & Physical Report ---
Date of Service February 18, 2021 Assessment & Plan (1) Abdominal pain: Celina Marr is a 65 year old woman here with abdominal pain and nausea secondary to her terminal ovarian cancer. Ovarian Cancer Locally metastatic, not pursuing any further treatments Will admit for nausea and pain control, Zofran 4mg q4h and .5 mg dilaudid IV q2h with home PO ativan continued Palliative care consulted, arranging home hospice No further vital signs, lab draws at present will try to get home with family as soon as possible and PO pain and nausea regimen can be established. GI consulted for palliative catheter placement evaluation F/E/N: diet as tolerated, craving broths DVT ppx: Deferred DNR/DNI (2) Ovarian cancer: (3) Palliative care encounter: (4) Weakness: (5) Ovarian cancer: History of Present Illness Chief Complaint: Abdominal pain and nausea Primary Care Provider: Gianna Hunt DO Celina Marr is a 65 year old woman with a past medical history significant for metastatic ovarian cancer with carcinomatosis who presented to the surgical center for a therapeutic abdominal paracentesis but she was sent from there to the emergency department with complaints of abdominal pain, nausea and vomiting. In the ED patient was found to be hypertensive tachycardic, tachypneic and in significant discomfort with distended abdomen. A CT was obtained which showed progression of disease but no bowel obstruction. Lab-work was obtained showing several abnormalities that are explained by her current disease condition and lack of adequate PO intake. She was initially diagnosed with ovarian cancer three years ago and has completed four cycles of chemotherapy, she does not wish to pursue any further treatments. She found out last week how severe her condition was and at this time just wants to be home with family and to be kept comfortable with whatever time she has left. Palliative care was consulted to help arrange hospice care and met her in the ED to discuss this. She received IV dilaudid and ondansetron in ED for pain and nausea. She is currently feeling okay and wishes to return home but based on need for IV medication and time to establish home hospice she agreed to be admitted for a day or two to establish hospice and make a rough estimation on needs when she returns home. Some discussion was had about a palliative pigtail catheter for continuous abdominal paracentesis drainage. Allergies Allergy/AdvReac Type Severity Reaction Status Date / Time Penicillins Allergy Severe hives, Verified 02/18/21 12:57 throat starts closing Sulfa (Sulfonamide Allergy Severe hives, Verified 02/18/21 12:57 Antibiotics) throat starts closing Home Medications Medication Instructions Recorded Confirmed Type albuterol sulfate [Ventolin HFA] 2 puff INHALATION Q4 PRN 06/25/19 02/18/21 History levothyroxine 100 mcg PO DAILYBB 06/25/19 02/18/21 History amlodipine 5 mg tablet 5 mg PO QAM 09/20/19 02/18/21 History doxorubicin 0 mg IV MONTHLY 02/08/21 02/18/21 History omeprazole 40 mg PO QAM 02/08/21 02/18/21 History oxycodone-acetaminophen [Percocet] 1 tab PO Q4H PRN 02/08/21 02/18/21 History lorazepam 0.5 mg SUBLINGUAL Q6H PRN #30 tab 02/10/21 02/18/21 Rx ondansetron 4 mg PO AC #90 tab 02/10/21 02/18/21 Rx walker [Ultra-Light Rollator] #1 ea 02/10/21 02/18/21 Rx Lactobacillus acidophilus 500 mmu cells PO DAILY 02/18/21 02/18/21 History [Probiotic Acidophilus] diphenoxylate-atropine 1 tab PO QID PRN 02/18/21 02/18/21 History ferrous gluconate 324 mg PO Q2D 02/18/21 02/18/21 History Past Med/Surg History Medical History (Updated 02/18/21 @ 17:54 by Paul Barron MD) Back pain GERD (gastroesophageal reflux disease) Hypertension Hypokalemia Hypothyroidism Ovarian cancer Palliative care encounter Surgical History H/O oral surgery S/P appendectomy S/P bilateral salpingo-oophorectomy S/P lymph node biopsy S/P tonsillectomy S/P total abdominal hysterectomy Status post surgery OMENTECTOMY Status post surgery PELVIC LYMPHADENECTOMY Family History Father Myocardial infarction Sister Bipolar disorder Grandmother (Maternal) Stroke Grandmother (Paternal) Stroke Social History Smoking Status: Former smoker Second Hand Exposure: No; Hx Alcohol Use: No Hx Substance Use: Yes Last Used Substance: Hours (ago) Substance Use Type Other:: medicinal RSO Medical Marijuana Preferred Language: Ethiopian Communication Ability: Effective 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 Beliefs That Will Affect Care: None marital status: Current Living Situation: Spouse and Family Feels Safe at Home: Yes Assistive Devices: Walker Review of Systems Review of Systems: All systems reviewed & are unremarkable except as noted in Subjective Physical Exam Constitutional: + acute distress (Mild distress, uncomfortable), + ill appearing and cooperative Eyes: PERRL, conjunctivae normal, anicteric sclerae Respiratory: normal respiratory effort, able to speak in complete sentences and + tachypneic Auscultation: lungs clear to auscultation bilaterally Cardiovascular: Rate/Rhythm: regular rhythm and + tachycardic; + abnormal rate Heart Sounds: normal S1 and normal S2 Extremities: + edema (3+ bilateral lower extremities) Gastrointestinal (Abdomen): Inspection/Auscultation: + abdomen distended Percussion/Palpation: + abdomen tender, abdomen soft and + ascites; abdomen not rigid Skin: no rashes, warm and dry Results & Data Results & Data ([facility]) Vital Signs (Past 12 Hours) Vital Signs Temp Pulse Pulse Resp BP BP Pulse Ox 02/18/21 18:10 99 H 23 95 02/18/21 18:00 103 H 21 94 02/18/21 17:50 98 H 15 96 02/18/21 17:40 102 H 22 96 02/18/21 17:30 109 H 19 97 02/18/21 17:20 97 H 23 94 02/18/21 17:10 100 H 26 H 95 02/18/21 17:00 102 H 25 H 94 02/18/21 16:50 107 H 27 H 94 02/18/21 16:47 103 H 20 161/89 H 95 02/18/21 16:30 100 H 14 02/18/21 16:20 98 H 31 H 02/18/21 16:10 101 H 24 02/18/21 16:00 110 H 16 02/18/21 15:57 102 H 22 94 02/18/21 15:56 101 H 29 H 167/93 H 96 02/18/21 15:50 99 H 18 94 05/10/21 15:40 108 H 20 95 02/18/21 15:30 109 H 25 H 94 02/18/21 15:21 111 H 16 94 02/18/21 15:20 17 189/98 H 94 02/18/21 15:10 102 H 24 94 02/18/21 15:00 107 H 14 96 02/18/21 14:51 105 H 15 96 02/18/21 14:20 104 H 17 94 02/18/21 14:10 94 H 17 141/85 H 93 02/18/21 14:00 95 H 97 H 29 H 141/85 H 93 02/18/21 13:50 92 H 18 02/18/21 13:40 97 H 24 02/18/21 13:30 97 H 17 02/18/21 13:20 92 H 14 02/18/21 13:10 93 H 23 02/18/21 13:00 97 H 18 02/18/21 12:50 96 H 19 02/18/21 12:40 99 H 11 L 02/18/21 12:30 108 H 104 H 13 96 02/18/21 12:20 102 H 21 02/18/21 12:17 106 H 21 02/18/21 10:46 36.2 C L 119 H 20 101/68 95 Code Status & VTE Plan VTE Prophylaxis Plan VTE Prophylaxis will be ordered: No Supervising Physician Co-Signing Physician Notes I personally examined the patient and verified all juarez points of history and exam, discussed case, and agree with decision making with Dr Hardy. Pain under control unable to be managed at home. Palliative input appreciated. Mostly she just wants to be able to get pain controlled so that she can be back with her family for what ever time she has left. Vitals noted, in general she is awake and alert pleasant no distress. HEENT normocephalic atraumatic mucous membranes moist. Breathing unlabored no accessory muscle use good effort. Skin shows no rashes no pallor or icterus. Neuro shows no focal deficits. Intractable pain/ovarian canceradmit for hospice/symptom control with a goal of home as soon as symptoms are controlled and a plan that will work on an outpatient basis. Otherwise as above Resident Activity Tracking Resident Involvement: Resident Care Provided Care Provided: Adult Hospital Medicine (1) Ovarian cancer Laterality: unspecified laterality Qualified Code(s): C56.9 - Malignant neoplasm of unspecified ovary (2) Abdominal pain Abdominal location: unspecified location Qualified Code(s): R10.9 - Unspecified abdominal pain
--- NOTE | 2021-02-18 19:01 | Billing Data ---
Date of Service February 18, 2021 Coding Level of Care Code 00604 OBS Care - Level 3
[2021-02-18] MEDS ORDERED: DIPHENOXYLATE/ATROPINE 2.5/0.025MG TAB PO PRN (19:55)
[2021-02-18] MEDS ORDERED: ACETAMINOPHEN 325 MG TAB PO PRN (19:55)
[2021-02-18] MEDS ORDERED: LORazepam 0.5 MG/1 ML VIAL IV PRN (19:55)
[2021-02-18] MEDS ORDERED: ALBUTEROL HFA 8 GM INHALER INH PRN (19:55)
[2021-02-18] MEDS ORDERED: oxyCODONE HCL IR 5 MG TAB (IMMEDIATE RELEASE) PO PRN ×2 (19:55)
[2021-02-18] MEDS ORDERED: HYDROmorphone INJ 0.5 MG/0.5 ML SYR IV PRN ×2 (19:55)
[2021-02-18] MEDS: ONDANSETRON INJ 2 MG/ML 2 ML VIAL IV SCH (21:04)
[2021-02-19] MEDS: LORazepam 0.5 MG TAB SL PRN ×3 (00:49→12:49)
[2021-02-19] MEDS: ONDANSETRON INJ 2 MG/ML 2 ML VIAL IV PRN ×2 (03:22→09:33)
[2021-02-19] MEDS: ONDANSETRON INJ 2 MG/ML 2 ML VIAL IV SCH ×2 (06:16→12:50)
[2021-02-19] MEDS: PANTOprazole 40 MG TAB PO SCH (07:55)
[2021-02-19] MEDS: LEVOTHYROXINE SODIUM 100 MCG TABLET PO SCH (07:55)
[2021-02-19] MEDS: HEPARIN 100 UNIT/ML 5ML FLUSH FLUSH PRN ×2 (09:35→13:42)
[2021-02-19] MEDS: POTASSIUM CHLORIDE / WTR 10 MEQ/100 ML PLCT IV SCH ×3 (10:21→12:38)
[2021-02-19] MEDS: ADVANCED PROBIOTIC 1250 MG CAPSULE PO SCH (10:21)
--- NOTE | 2021-02-19 10:52 | Communication Note ---
Date of Service: February 19, 2021 Consult was placed for abdominal pigtail catheter for palliative draining. This service is not provided by our department. Cancelled consult. TigerText to pr imary team to update.
--- NOTE | 2021-02-19 14:47 | Palliative Care Progress Note ---
Date of Service February 19, 2021 Assessment & Plan (1) Abdominal pain: She will continue her medical marijuana as at home. Oxycodone is available prn which has been effective for her. (2) Ovarian cancer: (3) Nausea: Stop zofran which is not effective and start low dose haldol TID. Continue ativan as needed. I spoke with Dr. Michael Pepe who has been seeing her with palliative care at [facility] and will be following her on hospice when she is discharged home. Discussed with family at bedside. Admission and Anticipated Discharge Date Admission Date: February 18, 2021 Subjective Awake and alert. She complains of abdominal pain and nausea despite routine zofran. She has been taking medical marijuana for pain and nausea at home. Review of Systems Review of Systems: [place] Symptom Assessment Scale Pain 2/3 Nausea 2/3 Anxiety 1/3 Fatigue 2/3 Drowsiness 0/3 Palliative Performance Score 30% Physical Exam Constitutional: no acute distress Respiratory: normal respiratory effort; no labored breathing Gastrointestinal (Abdomen): Inspection/Auscultation: + abdomen distended Percussion/Palpation: + abdomen tender Musculoskeletal: Extremities: + muscle atrophy Neurologic: awake; no focal motor deficits and not confused PG Care Time/CCT Total # of Minutes Spent Total Time Spent with Patient: Total time spent is greater than 50% in coordination of care (as documented) at patient's floor/unit and/or counseling patient: total time spent 35 minutes with more than 50% of time spent on symptom management, family education and support. Coding Level of Care Code 86658 Subseq Hosp Care Lvl 3 Diagnoses Abdominal pain R10.9 Abdominal location: unspecified location Ovarian cancer C56.9 Laterality: unspecified laterality Nausea R11.0 (1) Abdominal pain Abdominal location: unspecified location Qualified Code(s): R10.9 - Uns pecified abdominal pain (2) Ovarian cancer Laterality: unspecified laterality Qualified Code(s): C56.9 - Malignant neoplasm of unspecified ovary
[2021-02-19] MEDS: HALOPERIDOL ORAL SOLN 2 MG/ML PO SCH ×2 (17:04→21:26)
--- NOTE | 2021-02-19 18:03 | Hospitalist Progress Note ---
Date of Service February 19, 2021 Assessment & Plan (1) Abdominal pain: Celina Marr is a 65 year old woman here with abdominal pain and nausea secondary to her terminal ovarian cancer. Case management is working to arrange home hospice services. Ovarian Cancer - Locally metastatic, not pursuing any further treatments - admit for nausea and pain control while home hospice services are being arranged - Zofran 4mg q4h and .5 mg dilaudid IV q2h with home PO ativan continued. Home medical marijuana available for prn use - on comfort care - Palliative care consulted, appreciate assistance Recurrent Ascites - secondary to metastatic ovarian cancer - CT on admission showing no drainable fluid collection at this time - a lengthy discussion was held today with patient regarding management: could continue with 'as needed' therapeutic paracentesis procedures vs. place a pigtail catheter in the abdominal wall, which could be drained as frequently as necessary by home hospice nurse. We discussed the risks and benefits of each method - (ie weighting infection risk with convenience). Patient myrna jacobs lke to be evaluated for pigtail catheter placement - GI consulted on admission for recurrent ascites and possible therapeutic pig tail catheter placement. GI at [facility] does not place catheters. Primary team spoke with [facility] at [place] - catheter could be placed there. Patient will schedule evaluation visit after she is discharged from [facility] F/E/N: diet as tolerated DVT ppx: Deferred Dispo: MEd/Surg, anticipate discharge home 02/20 DNR/DNI (2) Ovarian cancer: (3) Palliative care encounter: (4) Weakness: Admission and Anticipated Discharge Date Admission Date: February 18, 2021 Supervising Physician Co-Signing Physician Notes I personally examined the patient and verified all juarez points of history and exam, discussed case, and agree with decision making with Dr Hatch. Doing okay with pain at the time that I see her. Extensive discussion about options to try to manage malignant ascites and subsequent pain. Vitals noted, in general she is awake and alert pleasant no distress. HEENT normocephalic atraumatic mucous membranes moist. Breathing unlabored no accessory muscle use good effort. Skin shows no rashes no pallor or icterus. Neuro shows no focal deficits. Intractable pain/ovarian cancerongoing titration of pain and nausea medication to try to affect relief in a way that would translate to going home. Discussed intermittent paracentesis versus pigtail catheter and home nursing drainage, risk/benefits of both. She is considering both options at this time. Otherwise as above Subjective Patient reports abdominal discomfort is "not as bad as usual" today. She does request being able to use her medical marijuana in the hospital. No nausea/vomiting at this time. Review of Systems Review of Systems: All systems reviewed & are unremarkable except as noted in HPI & below Physical Exam Constitutional: WD/WN, vitals as above cooperative; no acute distress Eyes: + anicteric sclerae ENMT: external ear and nose normal, oropharynx normal Neck: normal visual inspection and trachea midline Respiratory: no respiratory distress Cardiovascular: RRR, no murmur, no edema Gastrointestinal (Abdomen): Inspection/Auscultation: + abdomen distended Percussion/Palpation: + abdomen tender Psychiatric: A+Ox3, euthymic affect Resident Activity Tracking Resident Involvement: Resident Care Provided Care Provided: Adult Hospital Medicine (1) Ovarian cancer Laterality: unspecified laterality Qualified Code(s): C56.9 - Malignant neoplasm of unspecified ovary (2) Abdominal pain Abdominal location: unspecified location Qualified Code(s): R10.9 - Unspecified abdominal pain
--- NOTE | 2021-02-19 18:36 | Billing Data ---
Date of Service February 19, 2021 Coding Level of Care Code 82701 Subseq Hosp Care Lvl 3
[2021-02-19] MEDS: MEDICAL MARIJUANA PO PRN (20:15)
[2021-02-19] MEDS ORDERED: HALOPERIDOL 1 MG/0.5 ML UDP PO SCH (22:00)
[2021-02-20] MEDS: LEVOTHYROXINE SODIUM 100 MCG TABLET PO SCH (05:06)
[2021-02-20] MEDS: HALOPERIDOL ORAL SOLN 2 MG/ML PO SCH (05:06)
[2021-02-20] MEDS: LORazepam 0.5 MG TAB SL PRN (05:09)
[2021-02-20] MEDS: MEDICAL MARIJUANA PO PRN (08:00)
--- NOTE | 2021-02-20 08:24 | Discharge Summary ---
Date of Service February 20, 2021 Admission HPI Per Admitting Provider Celina Marr is a 65 year old woman with a past medical history significant for metastatic ovarian cancer with carcinomatosis who presented to the surgical center for a therapeutic abdominal paracentesis but she was sent from there to the emergency department with complaints of abdominal pain, nausea and vomiting. In the ED patient was found to be hypertensive tachycardic, tachypneic and in significant discomfort with distended abdomen. A CT was obtained which showed progression of disease but no bowel obstruction. Lab-work was obtained showing several abnormalities that are explained by her current disease condition and lack of adequate PO intake. She was initially diagnosed with ovarian cancer three years ago and has completed four cycles of chemotherapy, she does not wish to pursue any further treatments. She found out last week how severe her condition was and at this time just wants to be home with family and to be kept comfortable with whatever time she has left. Palliative care was consulted to help arrange hospice care and met her in the ED to discuss this. She received IV dilaudid and ondansetron in ED for pain and nausea. She is currently feeling okay and wishes to return home but based on need for IV medication and time to establish home hospice she agreed to be admitted for a day or two to establish hospice and make a rough estimation on needs when she returns home. Some discussion was had about a palliative pigtail catheter for continuous abdominal paracentesis drainage. Admission Exam Per Admitting Provider Constitutional: + acute distress (Mild distress, uncomfortable), + ill appearing and cooperative Eyes: PERRL, conjunctivae normal, anicteric sclerae Respiratory: normal respiratory effort, able to speak in complete sentences and + tachypneic Auscultation: lungs clear to auscultation bilaterally Cardiovascular: Rate/Rhythm: regular rhythm and + tachycardic; + abnormal rate Heart Sounds: normal S1 and normal S2 Extremities: + edema (3+ bilateral lower extremities) Gastrointestinal (Abdomen): Inspection/Auscultation: + abdomen distended Percussion/Palpation: + abdomen tender, abdomen soft and + ascites; abdomen not rigid Skin: no rashes, warm and dry Principal Diagnosis Metastatic Ovarian Cancer Discharge Exam Constitutional WD/WN, vitals as above cooperative; no acute distress Eyes + anicteric sclerae ENMT external ear and nose normal, oropharynx normal Neck normal visual inspection and trachea midline Respiratory no respiratory distress Cardiovascular RRR, no murmur, no edema Gastrointestinal (Abdomen) Inspection/Auscultation: + abdomen distended Percussion/Palpation: + abdomen tender Skin no rashes, warm and dry Psychiatric A+Ox3, euthymic affect Discharge Data Allergies Allergy/AdvReac Type Severity Reaction Status Date / Time Penicillins Allergy Severe hives, Verified 02/18/21 12:57 throat starts closing Sulfa (Sulfonamide Allergy Severe hives, Verified 02/18/21 12:57 Antibiotics) throat starts closing Consultations 02/18/21 12:21 Consult Palliative Care Stat 02/18/21 15:52 ED Decision to Admit Stat 02/18/21 15:54 ED Decision to Admit Stat Ordered Studies 02/18/21 11:53 CT abd pelvis IV con only Stat Hospital Course (1) Abdominal pain: Celina Marr is a 65 year old woman here with abdominal pain and nausea secondary to her terminal ovarian cancer. Patient was ultimately discharged with home hospice services. Ovarian Cancer - Locally metastatic, not pursuing any further treatments - She was admitted for nausea and pain control while home hospice services were being arranged - Zofran 4mg q4h and .5 mg dilaudid IV q2h with home PO ativan continued. Home medical marijuana available for prn use - on comfort care - Palliative care consulted, appreciate assistance with arrangement of hospice services Recurrent Ascites - secondary to metastatic ovarian cancer - CT on admission showing no drainable fluid collection at this time - a lengthy discussion was held today with patient regarding management: could continue with 'as needed' therapeutic paracentesis procedures vs. place a pigtail catheter in the abdominal wall, which could be drained as frequently as necessary by home hospice nurse. We discussed the risks and benefits of each method - (ie weighting infection risk with convenience). Patient myrna would lke to be evaluated for pigtail catheter placement - GI consulted on admission for recurrent ascites and possible therapeutic pigtail catheter placement. GI at [facility] does not place catheters. Primary team spoke with [facility] Interventional Radiology at [facility] - catheter could be placed there. Patient will schedule evaluation visit after she is discharged from [facility] (2) Ovarian cancer: (3) Palliative care encounter: (4) Weakness: Total Time Total Time Spent Total Time Spent (In Minutes): <30 Discharge Plan Discharge Items Patient Disposition: Hospice - Home Reason For Visit: VOMITING Discharge Diagnosis: Metastatic Ovarian Cancer Activity: Resume your previous activity Non-emergency contact: Primary Care Provider Call non-emergency contact if: you have any medication questions Follow-up/Referrals: Gianna Hunt DO [Primary Care Provider] - Diet: Regular Addtl Attending Provider Instructions: You were hospitalized at [facility] for nausea/vomiting. Prior to arrival, you were in the process of contacting home hospice agencies given your overall condition and goals of care. Our palliative care team was consulted on admission who facilitated your plans of care moving forward. You were admitted temporarily to the hospital for symptomatic control (IV anti-nausea medications) while awaiting home hospice services could be arranged. We discussed two options regarding the fluid accumulation in your abdomen. We anticipate this fluid will continue to accumulate over time - causing fullness in your abdomen. Two options we discussed as management include periodic paracentesis (which is what we have been doing up until this time) vs. placement of a pigtail catheter that remains embedded in the abdomen. The advantage of the embedded catheter is your home hospice nurse can drain it periodically on an as needed basis - without you having to come into the hospital each time. The downside of this option is the infection risk that comes with have catheters placed in body cavities. Ultimately, you preferred to at least explore permanent catheter placement - wh ile this procedure cannot be done at [facility], we did check with [facility]. Their Interventional Radiology department can place it at [facility]. You will need to schedule an evaluation visit with [facility] Interventional Radiology at [facility] following your discharge from [facility]. Pending Studies at Discharge: No Stand-Alone Forms: My [facility] Medications and DC Order Prescriptions: New haloperidol lactate 2 mg/mL Concentrate 0.25 mg PO Q8 14 Days Qty: 5.25 RF: 0 Continued levothyroxine 100 mcg tablet 100 mcg PO DAILYBB RF: 0 albuterol sulfate [Ventolin HFA] 90 mcg/actuation HFA aerosol inhaler 2 puff inhalation Q4 PRN (Reason: Shortness Of Breath Or Wheezing) RF: 0 omeprazole 40 mg capsule,delayed release(DR/EC) 40 mg PO QAM RF: 0 oxycodone-acetaminophen [Percocet] 5-325 mg tablet 1 tab PO Q4H PRN (Reason: Moderate Pain (Scale Score 5-6)) RF: 0 ondansetron 4 mg tablet,disintegrating 4 mg PO AC Qty: 90 RF: 0 (DME) Ultra-Light Rollator Misc See Rx Instructions .ROUTE .MEDSUPPLY Qty: 1 RF: 0 lorazepam 0.5 mg tablet 0.5 mg sublingual Q6H PRN (Reason: Anxiety) Qty: 30 RF: 0 diphenoxylate-atropine 2.5-0.025 mg tablet 1 tab PO QID PRN (Reason: Diarrhea) RF: 0 Probiotic Acidophilus 1.5 mg (250 million cell) Capsule 500 mmu cells PO DAILY RF: 0 Discontinued amlodipine 5 mg tablet 5 mg PO QAM RF: 0 doxorubicin 50 mg Recon Soln 0 mg IV MONTHLY RF: 0 ferrous gluconate 324 mg (38 mg iron) tablet 324 mg PO Q2D RF: 0 Discharge Orders: Discharge Order (Routine); Ordered 02/20/21 Ordered By: Nelli Segura/Other Patient Handouts: What Is Palliative Care? Admission Data Admit Date/Time: 02/18/21 18:14 Attending Provider: Tom Villanueva Admit Provider: Sergio Hardy Primary Care Provider: Gianna Hunt Other Providers: Alon Sinha ; [facility] ; Joi Linton Other Interventions: Discharge Summary Assessment (RN) Last Done: 02/20/21 09:25 Supervising Physician Co-Signing Physician Notes I personally examined the patient and verified all juarez points of history and exam, discussed case, and agree with decision making with Dr Hatch. Feeling better overall. Feeling up to going home. Discussed plans with patient and . Vitals noted, in general she is awake and alert pleasant no distress. HEENT normocephalic atraumatic mucous membranes moist. Breathing unlabored no accessory muscle use good effort. Skin shows no rashes no pallor or icterus. Neuro shows no focal deficits. Intractable pain/ovarian cancerstable for home with hospice now. Outpatient follow-up. Otherwise as above Resident Activity Tracking Resident Involvement: Resident Care Provided Care Provided: Adult Hospital Medicine
[2021-02-20] MEDS: PANTOprazole 40 MG TAB PO SCH (08:25)
[2021-02-20] MEDS: ADVANCED PROBIOTIC 1250 MG CAPSULE PO SCH (08:25)
[2021-02-20] MEDS: HEPARIN 100 UNIT/ML 5ML FLUSH FLUSH PRN (09:44)
--- NOTE | 2021-02-20 20:00 | Billing Data ---
Date of Service February 20, 2021 Coding Level of Care Code D/C Day Management <30 mins
== END 2021-02-20 10:19 | disposition hospice, home (50) | DRG 948 ==
LOC: 3N 10:19 → ED 10:19 → OBSVTOIN 18:14 → 3N 19:25